=== PATIENT | female | born 1935 | race Caucasian/White ===

== ENCOUNTER 2018-05-03 05:38 | Emergency (ER) | payer MEDICARE, BC ==
[~2018-05-03] VITALS: Ht 154.9 cm; Wt 86.3 kg
[~2018-05-03 05:38] MED LIST: APIX5TAB3 PO; ATOR40TA PO; GABA-532 PO; LANTUS SQ; LINA5TAB4 PO; METO-384 PO
[2018-05-03 06:04] LABS: MEAN CORPUSCULAR VOLUME 76.7 FL (78-98)
[2018-05-03 06:08] LABS: HEMATOCRIT 36.2 % (35.0-45.0); HEMOGLOBIN 11.5 g/dl (12.0-16.0); MEAN CORPUSCULAR HEMOGLOBIN 24.4 PG (27.0-31.0); MEAN CORPUSCULAR HGB CONC 31.9 % (33.0-36.5); MEAN PLATELET VOLUME 10.1 FL (7.4-10.4); PLATELET COUNT 232 X10'3 (140-440); RED BLOOD COUNT 4.72 X10'6 (4.20-5.60); RED CELL DISTRIBUTION WIDTH 17.4 % (11.5-14.5); WHITE BLOOD COUNT 9.5 X10'3 (4.5-11.0)
[2018-05-03] MEDS ORDERED: methylPREDNISolone sod succ 125mg/2ml vial IV ONE (06:15)
[2018-05-03] MEDS ORDERED: ipratropium/albuterol 3ml nebule NEB ONE (06:15)
[2018-05-03] MEDS: magnesium 1gm/100ml D5W IVPB 100 ML IV SCH ×2 (06:32→07:34)
[2018-05-03 06:34] LABS: ALANINE AMINOTRANSFERASE 20 U/L (12-78); ALBUMIN 2.9 G/DL (3.4-5.0); ALBUMIN/GLOBULIN RATIO 0.7 (1.1-1.5); ALKALINE PHOSPHATASE 103 IU/L (46-116); ANION GAP 10 (8-16); ASPARTATE AMINO TRANSFERASE 18 U/L (10-37); BILIRUBIN,TOTAL 0.9 MG/DL (0.1-1.0); BLOOD UREA NITROGEN 27 MG/DL (7-18); CALCIUM 9.4 MG/DL (8.5-10.1); CHLORIDE 103 MMOL/L (99-107); CREATININE 1.59 MG/DL (0.40-0.90); GLUCOSE 182 MG/DL (70-104); POTASSIUM 3.7 MMOL/L (3.5-5.1); SODIUM 139 MMOL/L (135-145); TOTAL CARBON DIOXIDE 25.6 MMOL/L (24-32); TOTAL PROTEIN 6.8 G/DL (6.4-8.2); eGFR 31 ML/MIN
[2018-05-03 07:18] LABS: ANISOCYTOSIS 2+; BASOPHILS % (MANUAL) 4 % (0-1); EOSINOPHILS % (MANUAL) 4 % (0-6); LYMPHOCYTES % (MANUAL) 20 % (21-51); MONOCYTES % (MANUAL) 7 % (2-12); NEUTROPHILS % (MANUAL) 65 % (42-75); PLATELET ESTIMATE NORMAL; TOTAL CELLS COUNTED 100
[2018-05-03 07:40] LABS: PARTIAL THROMBOPLASTIN TIME 29 SECONDS (22-32); PROTHROMBIN TIME 10.4 SECONDS (9.0-12.0)
[2018-05-03] MEDS ORDERED: DOXY100C43 PO (08:19)
[2018-05-03] MEDS ORDERED: PRED20TA PO (08:19)
[2018-05-03] MEDS ORDERED: furosemide 20MG tablet PO ONE (08:20)
[2018-05-03] MEDS ORDERED: levoFLOXACIN 250mg tablet PO ONE (09:05)
[2018-05-03] MEDS ORDERED: IPRA3AMP31 IH (09:12)
[2018-05-03 09:27] VITALS: BP 150/87
== END 2018-05-03 09:29 | disposition home or self-care (01) ==
LOC: ER 05:38
DX: J44.1 Chronic obstructive pulmonary disease with (acute) exacerbation (principal); I50.9 Heart failure, unspecified; I25.10 Atherosclerotic heart disease of native coronary artery without angina pectoris; I11.0 Hypertensive heart disease with heart failure; I25.2 Old myocardial infarction; E11.9 Type 2 diabetes mellitus without complications; G89.29 Other chronic pain; Z85.038 Personal history of other malignant neoplasm of large intestine; Z90.49 Acquired absence of other specified parts of digestive tract; Z95.1 Presence of aortocoronary bypass graft; Z95.0 Presence of cardiac pacemaker; Z79.01 Long term (current) use of anticoagulants; Z79.4 Long term (current) use of insulin; Z79.899 Other long term (current) drug therapy
CPT/HCPCS: 36415; 71045; 80053; 83880; 84145; 84484; 85025; 85610; 85730; 93005; 94640; 94760; 96365; 96375; 99285; J2930

== ENCOUNTER 2018-05-21 09:54 | Inpatient (IN) | payer MEDICARE, BC ==
[~2018-05-21] VITALS: Ht 160 cm; Wt 81.0 kg
[~2018-05-21 09:54] MED LIST changes: +DOXY100C43 PO; +IPRA3AMP31 IH; +PRED20TA PO
[2018-05-21] MEDS ORDERED: methylPREDNISolone sod succ 125mg/2ml vial IV ONE (10:15)
[2018-05-21] MEDS ORDERED: furosemide 10 MG/1 ML 10ml inj IV ONE (10:15)
[2018-05-21] MEDS ORDERED: ipratropium/albuterol 3ml nebule NEB ONE (10:15)
[2018-05-21 10:31] LABS: BASOPHILS # (AUTO) 0.1 X10'3 (0-0.2); BASOPHILS % (AUTO) 0.6 % (0-1); EOSINOPHILS # (AUTO) 0.3 X10'3 (0-0.9); HEMATOCRIT 34.6 % (35.0-45.0); HEMOGLOBIN 10.9 g/dl (12.0-16.0); LYMPHOCYTES # (AUTO) 1.1 X10'3 (1.1-4.8); LYMPHOCYTES % (AUTO) 12.6 % (21-51); MEAN CORPUSCULAR HEMOGLOBIN 24.2 PG (27.0-31.0); MEAN CORPUSCULAR HGB CONC 31.6 % (33.0-36.5); MEAN CORPUSCULAR VOLUME 76.5 FL (78-98); MEAN PLATELET VOLUME 9.7 FL (7.4-10.4); MONOCYTES # (AUTO) 0.6 X10'3 (0-0.9); MONOCYTES % (AUTO) 7.3 % (2-12); NEUTROPHILS # (AUTO) 6.5 X10'3 (1.8-7.7); NEUTROPHILS % (AUTO) 75.5 % (42-75); PLATELET COUNT 217 X10'3 (140-440); RED BLOOD COUNT 4.52 X10'6 (4.20-5.60); RED CELL DISTRIBUTION WIDTH 19.3 % (11.5-14.5); WHITE BLOOD COUNT 8.6 X10'3 (4.5-11.0)
[2018-05-21] MEDS: nitroGLYCERIN 0.4mg SUBLingual tab SL PRN ×2 (10:38→10:46)
[2018-05-21 10:46] LABS: ALANINE AMINOTRANSFERASE 21 U/L (12-78); ALBUMIN 2.6 G/DL (3.4-5.0); ALBUMIN/GLOBULIN RATIO 0.7 (1.1-1.5); ALKALINE PHOSPHATASE 92 IU/L (46-116); ANION GAP 8 (8-16); ASPARTATE AMINO TRANSFERASE 24 U/L (10-37); BLOOD UREA NITROGEN 20 MG/DL (7-18); BUN/CREATININE RATIO 13.6 (6.6-38.0); CALCIUM 9.3 MG/DL (8.5-10.1); CHLORIDE 102 MMOL/L (99-107); CREATININE 1.47 MG/DL (0.40-0.90); GLUCOSE 183 MG/DL (70-104); POTASSIUM 4.2 MMOL/L (3.5-5.1); SODIUM 140 MMOL/L (135-145); TOTAL CARBON DIOXIDE 30.2 MMOL/L (24-32); TOTAL PROTEIN 6.5 G/DL (6.4-8.2); eGFR 34 ML/MIN
[2018-05-21 10:51] LABS: ABG BASE EXCESS 3.6 mmol/L (-2.0-3.0); ABG HCO3 28.2 mmol/L (22.0-26.0); ABG OXYGEN SATURATION 94.1 % (95-98); ABG PCO2 (T) 43.1 mmHg (32.0-45.0); ABG PH (T) 7.434 (7.350-7.450); ABG PO2 (T) 69.1 mmHg (83-108); ALLEN'S TEST Positive; FCOHb 0.6 % (0.5-1.5); FLOW 2 L/min; FO2Hb 93.5 % (94-100); RESPIRATORY RATE (OBSERVED) 16 b/min; TOTAL HEMOGLOBIN 11.4 G/dl (12.0-16.0)
[2018-05-21 10:53] LABS: ANISOCYTOSIS 2+; MICROCYTOSIS 1+; PLATELET ESTIMATE NORMAL
[2018-05-21 10:54] LABS: MAGNESIUM 1.8 MG/DL (1.5-2.4)
[2018-05-21] MEDS ORDERED: AMLO10TA4 PO (11:36)
[2018-05-21] MEDS ORDERED: FURO-150 PO (11:36)
[2018-05-21] MEDS ORDERED: APIX2.5T PO (11:36)
[2018-05-21] MEDS ORDERED: LEVO75TA PO (11:36)
[2018-05-21] MEDS ORDERED: ALLO100T PO (11:36)
[2018-05-21] MEDS ORDERED: HYDR-3965 PO (11:36)
[2018-05-21] MEDS ORDERED: SERT25TA PO (11:38)
[2018-05-21] MEDS ORDERED: acetaminophen 325mg tablet PO PRN ×2 (12:40)
[2018-05-21] MEDS ORDERED: glucagon, human recombinant 1mg kit SUBCUT PRN (12:40)
[2018-05-21] MEDS ORDERED: morphine 2 MG/ML inj. syringe IV PRN ×2 (12:40)
[2018-05-21] MEDS ORDERED: MESSAGE TO PHARMACY PO ONE (12:40)
[2018-05-21] MEDS ORDERED: magnesium Cl slow-release 64mg tablet PO PRN (12:40)
[2018-05-21] MEDS ORDERED: dextrose 50%-water 50ml dispensing syringe IV PRN ×2 (12:40)
[2018-05-21] MEDS ORDERED: diphenhydrAMINE 25mg capsule PO PRN (12:40)
[2018-05-21] MEDS ORDERED: HYDROcodone/acetaminophen 10/325mg tab PO PRN (12:40)
[2018-05-21] MEDS ORDERED: potassium Cl 20 mEq SR tablet PO PRN ×2 (12:40)
[2018-05-21] MEDS ORDERED: mag hydrox/Alum hydrox/simeth 30ml oral suspension PO PRN (12:40)
[2018-05-21] MEDS ORDERED: dextrose ORAL solution 15 GM/59 ML bottle PO PRN ×2 (12:40)
[2018-05-21] MEDS ORDERED: magnesium hydroxide 30ml (MOM) UD suspension PO PRN (12:40)
[2018-05-21] MEDS ORDERED: potassium Cl 40MEQ/NS 500ml 500 ML IV PRN ×2 (12:40)
[2018-05-21] MEDS ORDERED: ondansetron/PF 4mg/2ml inj IV PRN (12:40)
[2018-05-21] MEDS ORDERED: HYDROcodone/acetaminophen 5mg/325mg tablet PO PRN (12:40)
[2018-05-21] MEDS ORDERED: magnesium 4gm in 100ml NS 100 ML IV PRN (12:40)
[2018-05-21] MEDS ORDERED: magnesium 1gm/100ml D5W IVPB 100 ML IV PRN (12:40)
[2018-05-21] MEDS: normal saline 1000ml 1,000 ML IV SCH (13:03)
[2018-05-21] MEDS: levoFLOXACIN-Levaquin 500mg/D5 100 ML IV SCH (13:20)
[2018-05-21] MEDS: K and/or MAG REPLACEMENT MC SCH (13:22)
[2018-05-21] MEDS: pantoprazole 40mg Tablet.DR PO SCH (13:36)
[2018-05-21 14:06] LABS: % IRON SATURATION 12 % (11-46); IRON 33 UG/DL (49-151); TOTAL IRON BINDING CAPACITY 271 UG/DL (259-388)
[2018-05-21 14:07] LABS: HEMOGLOBIN A1C 8.4 % (4.5-6.2)
[2018-05-21 14:21] LABS: FERRITIN 36 NG/ML (8-252)
[2018-05-21] MEDS: ipratropium/albuterol 3ml nebule NEB SCH ×3 (15:26→23:22)
[2018-05-21 16:00] VITALS: BP 155/69
[2018-05-21] MEDS: methylPREDNISolone sod succ 125mg/2ml vial IV SCH (16:31)
[2018-05-21 20:00] VITALS: BP 119/53
[2018-05-21] MEDS: furosemide 10 MG/1 ML 10ml inj IV SCH (20:47)
[2018-05-21] MEDS: allopurinol 100mg tablet PO SCH (20:48)
[2018-05-21] MEDS: apixaban 2.5mg tablet PO SCH (20:48)
[2018-05-21] MEDS: atorvastatin 20mg tablet PO SCH (20:49)
[2018-05-21] MEDS ORDERED: temazepam 15mg capsule PO PRN (21:00)
[2018-05-21] MEDS: insulin Lispro (HumaLOG) vial - multi-dose SQ SCH (21:31)
[2018-05-21] MEDS: insulin glargine (Lantus) pen - multi-dose SQ SCH (21:32)
[2018-05-22] VITALS: BP 101/57
[2018-05-22] MEDS: methylPREDNISolone sod succ 125mg/2ml vial IV SCH ×4 (00:24→23:55)
[2018-05-22] MEDS: ipratropium/albuterol 3ml nebule NEB SCH ×6 (03:11→23:33)
[2018-05-22] MEDS: normal saline 1000ml 1,000 ML IV SCH (05:01)
[2018-05-22 05:19] LABS: BASOPHILS % (AUTO) 0 % (0-1); EOSINOPHILS # (AUTO) 0.1 X10'3 (0-0.9); EOSINOPHILS % (AUTO) 1.3 % (0-6); HEMATOCRIT 29.8 % (35.0-45.0); HEMOGLOBIN 9.4 g/dl (12.0-16.0); LYMPHOCYTES # (AUTO) 0.4 X10'3 (1.1-4.8); LYMPHOCYTES % (AUTO) 8.6 % (21-51); MEAN CORPUSCULAR HGB CONC 31.6 % (33.0-36.5); MEAN PLATELET VOLUME 10.2 FL (7.4-10.4); MONOCYTES % (AUTO) 1.1 % (2-12); NEUTROPHILS # (AUTO) 3.9 X10'3 (1.8-7.7); PLATELET COUNT 182 X10'3 (140-440); RED BLOOD COUNT 3.92 X10'6 (4.20-5.60); WHITE BLOOD COUNT 4.3 X10'3 (4.5-11.0)
[2018-05-22 05:49] LABS: ALANINE AMINOTRANSFERASE 17 U/L (12-78); ALBUMIN 2.3 G/DL (3.4-5.0); ALBUMIN/GLOBULIN RATIO 0.7 (1.1-1.5); ALKALINE PHOSPHATASE 76 IU/L (46-116); ANION GAP 11 (8-16); ASPARTATE AMINO TRANSFERASE 18 U/L (10-37); BILIRUBIN,TOTAL 0.8 MG/DL (0.1-1.0); BLOOD UREA NITROGEN 31 MG/DL (7-18); BUN/CREATININE RATIO 18.6 (6.6-38.0); CALCIUM 8.5 MG/DL (8.5-10.1); CHLORIDE 102 MMOL/L (99-107); CHOL/HDL RATIO 1.8 (0.00-4.99); CHOLESTEROL 138 MG/DL (0-200); CREATININE 1.67 MG/DL (0.40-0.90); GLUCOSE 247 MG/DL (70-104); HDL CHOLESTEROL 76 MG/DL (35-60); LDL CHOLESTEROL 59 MG/DL (50-100); MAGNESIUM 1.6 MG/DL (1.5-2.4); PHOSPHORUS 3.8 MG/DL (2.3-4.5); SODIUM 140 MMOL/L (135-145); TOTAL CARBON DIOXIDE 27.2 MMOL/L (24-32); TOTAL PROTEIN 5.7 G/DL (6.4-8.2); TRIGLYCERIDES 40 MG/DL (20-135); eGFR 29 ML/MIN
[2018-05-22 05:59] LABS: ANISOCYTOSIS 2+; MICROCYTOSIS 1+; PLATELET ESTIMATE NORMAL
[2018-05-22 06:00] LABS: ELLIPTOCYTES 1+
[2018-05-22 07:03] VITALS: BP 123/66
[2018-05-22 07:35] VITALS: BP 123/66
[2018-05-22] MEDS ORDERED: furosemide 20MG tablet PO SCH (08:00)
[2018-05-22] MEDS ORDERED: levoTHYROXINE 75mcg tablet PO SCH (08:00)
[2018-05-22] MEDS: K and/or MAG REPLACEMENT MC SCH (08:00)
[2018-05-22] MEDS: sertraline 50mg tablet PO SCH (08:00)
[2018-05-22] MEDS: pantoprazole 40mg Tablet.DR PO SCH (08:26)
[2018-05-22] MEDS: apixaban 2.5mg tablet PO SCH ×2 (08:26→20:33)
[2018-05-22] MEDS: allopurinol 100mg tablet PO SCH ×2 (08:27→20:33)
[2018-05-22] MEDS: metoprolol succinate 25mg (24-HOUR) SR. Tablet PO SCH (08:28)
[2018-05-22] MEDS: amLODIPine 5mg tablet PO SCH (08:28)
[2018-05-22] MEDS: insulin Lispro (HumaLOG) vial - multi-dose SQ SCH ×3 (09:38→18:47)
[2018-05-22] MEDS: furosemide 10 MG/1 ML 10ml inj IV SCH ×2 (09:39→20:38)
[2018-05-22 11:01] LABS: CLARITY,URINE CLEAR (Clear); COLOR,URINE YELLOW (Yellow); GLUCOSE, URINE 250 mg/dl (Neg); KETONES,URINE NEGATIVE (Neg); LEUKOCYTE ESTERASE ,URINE NEGATIVE (Neg); NITRITES, URINE NEGATIVE (Neg); OCCULT BLOOD,URINE SMALL (Neg); PROTEIN,URINE 100 mg/dl (Neg); UA COLLECTION TYPE CLN CATCH MIDSTREAM; UROBILINOGEN,URINE 0.2 E.U/dL (0.2-1.0)
[2018-05-22 11:10] LABS: MUCUS STRANDS FEW /LPF (Neg); SQUAMOUS EPITHELIAL CELL,UR MODERATE /LPF (FEW)
[2018-05-22 11:12] LABS: BACTERIA,URINE FEW /HPF (Neg); RBC,URINE 0-2 /HPF (0-2); WBC,URINE 0-4 /HPF (0-4)
[2018-05-22 18:00] VITALS: BP 114/81
[2018-05-22] MEDS: atorvastatin 20mg tablet PO SCH (20:33)
[2018-05-22] MEDS: insulin glargine (Lantus) pen - multi-dose SQ SCH (21:35)
[2018-05-23] VITALS: BP 119/54
[2018-05-23] MEDS: normal saline 1000ml 1,000 ML IV SCH ×2 (01:04→20:48)
[2018-05-23] MEDS: ipratropium/albuterol 3ml nebule NEB SCH ×6 (03:18→23:20)
[2018-05-23 06:03] LABS: ALANINE AMINOTRANSFERASE 17 U/L (12-78); ALBUMIN 2.5 G/DL (3.4-5.0); ALBUMIN/GLOBULIN RATIO 0.8 (1.1-1.5); ALKALINE PHOSPHATASE 66 IU/L (46-116); ANION GAP 11 (8-16); ASPARTATE AMINO TRANSFERASE 21 U/L (10-37); BILIRUBIN,TOTAL 0.6 MG/DL (0.1-1.0); BLOOD UREA NITROGEN 41 MG/DL (7-18); CALCIUM 8.5 MG/DL (8.5-10.1); CHLORIDE 104 MMOL/L (99-107); CREATININE 1.71 MG/DL (0.40-0.90); GLUCOSE 221 MG/DL (70-104); MAGNESIUM 1.7 MG/DL (1.5-2.4); PHOSPHORUS 4.4 MG/DL (2.3-4.5); POTASSIUM 3.6 MMOL/L (3.5-5.1); SODIUM 142 MMOL/L (135-145); TOTAL CARBON DIOXIDE 26.9 MMOL/L (24-32); TOTAL PROTEIN 5.8 G/DL (6.4-8.2); eGFR 29 ML/MIN
[2018-05-23 07:00] VITALS: BP 110/40
[2018-05-23 07:08] LABS: HEMATOCRIT 28.3 % (35.0-45.0); HEMOGLOBIN 9.5 g/dl (12.0-16.0); MEAN CORPUSCULAR HEMOGLOBIN 25.4 PG (27.0-31.0); MEAN CORPUSCULAR HGB CONC 33.5 % (33.0-36.5); MEAN CORPUSCULAR VOLUME 75.9 FL (78-98); MEAN PLATELET VOLUME 10.5 FL (7.4-10.4); PLATELET COUNT 196 X10'3 (140-440); RED BLOOD COUNT 3.73 X10'6 (4.20-5.60); RED CELL DISTRIBUTION WIDTH 18.1 % (11.5-14.5); WHITE BLOOD COUNT 7.9 X10'3 (4.5-11.0)
[2018-05-23 07:09] LABS: BASOPHILS % (AUTO) 0.1 % (0-1); EOSINOPHILS % (AUTO) 0.1 % (0-6); LYMPHOCYTES # (AUTO) 0.4 X10'3 (1.1-4.8); LYMPHOCYTES % (AUTO) 4.7 % (21-51); MONOCYTES # (AUTO) 0.1 X10'3 (0-0.9); MONOCYTES % (AUTO) 0.8 % (2-12); NEUTROPHILS # (AUTO) 7.4 X10'3 (1.8-7.7); NEUTROPHILS % (AUTO) 94.3 % (42-75)
[2018-05-23] MEDS: sertraline 50mg tablet PO SCH (08:00)
[2018-05-23] MEDS: K and/or MAG REPLACEMENT MC SCH (08:00)
[2018-05-23] MEDS: levoTHYROXINE 88mcg tablet PO SCH (08:41)
[2018-05-23] MEDS: amLODIPine 5mg tablet PO SCH (08:41)
[2018-05-23] MEDS: pantoprazole 40mg Tablet.DR PO SCH (08:42)
[2018-05-23] MEDS: apixaban 2.5mg tablet PO SCH ×2 (08:42→20:51)
[2018-05-23] MEDS: allopurinol 100mg tablet PO SCH ×2 (08:44→20:51)
[2018-05-23] MEDS: methylPREDNISolone sod succ 125mg/2ml vial IV SCH ×2 (08:45→16:43)
[2018-05-23] MEDS: furosemide 10 MG/1 ML 10ml inj IV SCH (08:45)
[2018-05-23] MEDS: levoFLOXACIN-Levaquin 500mg/D5 100 ML IV SCH (08:46)
[2018-05-23] MEDS: metoprolol succinate 25mg (24-HOUR) SR. Tablet PO SCH (08:50)
[2018-05-23] MEDS: insulin Lispro (HumaLOG) vial - multi-dose SQ SCH ×4 (09:00→21:02)
[2018-05-23 11:00] VITALS: BP 119/52
[2018-05-23] MEDS ORDERED: bisacodyl 10mg suppository rectal RC STA ×2 (14:55→14:58)
[2018-05-23] MEDS ORDERED: bisacodyl 10mg suppository rectal RC PRN (14:55)
[2018-05-23 20:00] VITALS: BP 137/89
[2018-05-23] MEDS: atorvastatin 20mg tablet PO SCH (20:50)
[2018-05-23] MEDS: insulin glargine (Lantus) pen - multi-dose SQ SCH (21:02)
[2018-05-24] VITALS: BP 123/56
[2018-05-24] MEDS: methylPREDNISolone sod succ 125mg/2ml vial IV SCH ×2 (00:27→09:08)
[2018-05-24] MEDS: ipratropium/albuterol 3ml nebule NEB SCH ×3 (02:49→11:00)
[2018-05-24 05:47] LABS: BASOPHILS % (AUTO) 0 % (0-1); EOSINOPHILS % (AUTO) 0.1 % (0-6); HEMATOCRIT 28.4 % (35.0-45.0); HEMOGLOBIN 9.3 g/dl (12.0-16.0); LYMPHOCYTES # (AUTO) 0.3 X10'3 (1.1-4.8); LYMPHOCYTES % (AUTO) 3.3 % (21-51); MEAN CORPUSCULAR HEMOGLOBIN 24.8 PG (27.0-31.0); MEAN CORPUSCULAR HGB CONC 32.7 % (33.0-36.5); MEAN CORPUSCULAR VOLUME 75.9 FL (78-98); MONOCYTES # (AUTO) 0.1 X10'3 (0-0.9); MONOCYTES % (AUTO) 1.8 % (2-12); NEUTROPHILS # (AUTO) 7.8 X10'3 (1.8-7.7); NEUTROPHILS % (AUTO) 94.8 % (42-75); PLATELET COUNT 210 X10'3 (140-440); RED BLOOD COUNT 3.74 X10'6 (4.20-5.60); RED CELL DISTRIBUTION WIDTH 18.5 % (11.5-14.5); WHITE BLOOD COUNT 8.2 X10'3 (4.5-11.0)
[2018-05-24 06:10] LABS: ALANINE AMINOTRANSFERASE 26 U/L (12-78); ALBUMIN 2.6 G/DL (3.4-5.0); ALBUMIN/GLOBULIN RATIO 0.8 (1.1-1.5); ALKALINE PHOSPHATASE 67 IU/L (46-116); ANION GAP 13 (8-16); ASPARTATE AMINO TRANSFERASE 24 U/L (10-37); BILIRUBIN,TOTAL 0.6 MG/DL (0.1-1.0); BLOOD UREA NITROGEN 44 MG/DL (7-18); BUN/CREATININE RATIO 27.5 (6.6-38.0); CALCIUM 8.3 MG/DL (8.5-10.1); CHLORIDE 104 MMOL/L (99-107); GLUCOSE 264 MG/DL (70-104); MAGNESIUM 1.8 MG/DL (1.5-2.4); PHOSPHORUS 4.3 MG/DL (2.3-4.5); POTASSIUM 3.4 MMOL/L (3.5-5.1); SODIUM 142 MMOL/L (135-145); TOTAL CARBON DIOXIDE 24.9 MMOL/L (24-32); TOTAL PROTEIN 5.8 G/DL (6.4-8.2); eGFR 31 ML/MIN
[2018-05-24 06:58] VITALS: BP 122/63
[2018-05-24] MEDS ORDERED: lactobacillus rhamnosus 10,000 MMU CELLS/CAPSULE PO SCH (08:00)
[2018-05-24] MEDS: K and/or MAG REPLACEMENT MC SCH (08:00)
[2018-05-24] MEDS: apixaban 2.5mg tablet PO SCH (09:08)
[2018-05-24] MEDS: pantoprazole 40mg Tablet.DR PO SCH (09:08)
[2018-05-24] MEDS: sertraline 50mg tablet PO SCH (09:09)
[2018-05-24] MEDS: amLODIPine 5mg tablet PO SCH (09:09)
[2018-05-24] MEDS: metoprolol succinate 25mg (24-HOUR) SR. Tablet PO SCH (09:09)
[2018-05-24] MEDS: levoTHYROXINE 88mcg tablet PO SCH (09:09)
[2018-05-24] MEDS: allopurinol 100mg tablet PO SCH (09:10)
[2018-05-24] MEDS: insulin Lispro (HumaLOG) vial - multi-dose SQ SCH ×2 (09:18→13:16)
[2018-05-24] MEDS ORDERED: digoxin 125mcg (0.125mg) tablet PO SCH (10:30)
[2018-05-24 11:33] VITALS: BP 124/47
[2018-05-24] MEDS ORDERED: potassium Cl 20 mEq SR tablet PO STA (13:02)
== END 2018-05-24 15:03 | DRG 291 ==
LOC: ER 09:54 → ED HOLD 12:40 → SUR 3N 15:22
PROVIDERS: ADMIT Family Medicine; ATTEND Family Medicine
DX: I13.0 Hypertensive heart and chronic kidney disease with heart failure and stage 1 through stage 4 chronic kidney disease, or unspecified chronic kidney disease (principal); I50.33 Acute on chronic diastolic (congestive) heart failure; J96.90 Respiratory failure, unspecified, unspecified whether with hypoxia or hypercapnia; J44.1 Chronic obstructive pulmonary disease with (acute) exacerbation; D64.9 Anemia, unspecified; E03.9 Hypothyroidism, unspecified; E11.22 Type 2 diabetes mellitus with diabetic chronic kidney disease; E78.5 Hyperlipidemia, unspecified; G89.29 Other chronic pain; F32.9 Major depressive disorder, single episode, unspecified; I25.10 Atherosclerotic heart disease of native coronary artery without angina pectoris; I27.81 Cor pulmonale (chronic); I48.91 Unspecified atrial fibrillation; M10.9 Gout, unspecified; N18.3 Chronic kidney disease, stage 3 (moderate); Z66 Do not resuscitate; I25.2 Old myocardial infarction; Z95.0 Presence of cardiac pacemaker; Z95.1 Presence of aortocoronary bypass graft; Z98.42 Cataract extraction status, left eye; Z98.41 Cataract extraction status, right eye; Z23 Encounter for immunization; Z99.81 Dependence on supplemental oxygen; Z90.49 Acquired absence of other specified parts of digestive tract; Z79.01 Long term (current) use of anticoagulants; Z79.4 Long term (current) use of insulin; Z79.899 Other long term (current) drug therapy; Z85.038 Personal history of other malignant neoplasm of large intestine; Z79.890 Hormone replacement therapy; Z87.891 Personal history of nicotine dependence; Z82.3 Family history of stroke
CPT/HCPCS: 36415; 36600; 71045; 80053; 80061; 81001; 82728; 82803; 82948; 83036; 83540; 83550; 83735; 83880; 84100; 84443; 84484; 85018; 85025; 87040; 87070; 93005; 94640; 94667; 94760; 96374; 96375; 97110; 97116; 97162; 97530; 99285; J1815; J1940; J1956; J2930; J7030

== ENCOUNTER 2018-07-28 18:29 | Inpatient (IN) | payer MEDICARE, BC ==
[2018-07-28] VITALS (9 sets, daily range): BP systolic 80–102; BP diastolic 39–59
[~2018-07-28] VITALS: Ht 157.5 cm; Wt 86.0 kg
[~2018-07-28 18:29] MED LIST changes: +ALLO100T PO; +AMLO10TA4 PO; +APIX2.5T PO; -APIX5TAB3 PO; -DOXY100C43 PO; +FURO-150 PO; -GABA-532 PO; +HYDR-3965 PO; +LEVO75TA PO; -PRED20TA PO; +SERT25TA PO
[2018-07-28 19:10] LABS: BASOPHILS # (AUTO) 0.1 X10'3 (0-0.2); BASOPHILS % (AUTO) 0.7 % (0-1); EOSINOPHILS # (AUTO) 0.2 X10'3 (0-0.9); EOSINOPHILS % (AUTO) 2.1 % (0-6); HEMATOCRIT 23.5 % (35.0-45.0); HEMOGLOBIN 7.3 g/dl (12.0-16.0); LYMPHOCYTES # (AUTO) 1.9 X10'3 (1.1-4.8); LYMPHOCYTES % (AUTO) 23.5 % (21-51); MEAN CORPUSCULAR HGB CONC 31.1 % (33.0-36.5); MEAN CORPUSCULAR VOLUME 83.6 FL (78-98); MEAN PLATELET VOLUME 10.3 FL (7.4-10.4); MONOCYTES # (AUTO) 0.7 X10'3 (0-0.9); MONOCYTES % (AUTO) 8.1 % (2-12); NEUTROPHILS # (AUTO) 5.4 X10'3 (1.8-7.7); NEUTROPHILS % (AUTO) 65.6 % (42-75); PLATELET COUNT 188 X10'3 (140-440); RED BLOOD COUNT 2.82 X10'6 (4.20-5.60); RED CELL DISTRIBUTION WIDTH 20.8 % (11.5-14.5); WHITE BLOOD COUNT 8.3 X10'3 (4.5-11.0)
[2018-07-28 19:33] LABS: ALANINE AMINOTRANSFERASE 20 U/L (12-78); ALBUMIN 2.9 G/DL (3.4-5.0); ALKALINE PHOSPHATASE 62 IU/L (46-116); ANION GAP 10 (8-16); ASPARTATE AMINO TRANSFERASE 17 U/L (10-37); BILIRUBIN,TOTAL 0.4 MG/DL (0.1-1.0); BLOOD UREA NITROGEN 77 MG/DL (7-18); BUN/CREATININE RATIO 43.5 (6.6-38.0); CALCIUM 8.7 MG/DL (8.5-10.1); CHLORIDE 101 MMOL/L (99-107); CREATININE 1.77 MG/DL (0.40-0.90); GLUCOSE 176 MG/DL (70-104); POTASSIUM 4.1 MMOL/L (3.5-5.1); SODIUM 138 MMOL/L (135-145); TOTAL CARBON DIOXIDE 27.2 MMOL/L (24-32); TOTAL PROTEIN 5.9 G/DL (6.4-8.2); eGFR 27 ML/MIN
[2018-07-28 19:36] LABS: INR 1.3 INR; PARTIAL THROMBOPLASTIN TIME 33 SECONDS (22-32); PROTHROMBIN TIME 13.4 SECONDS (9.0-12.0)
[2018-07-28 19:54] LABS: OCCULT BLOOD STOOL POSITIVE (Neg)
[2018-07-28] MEDS ORDERED: methylPREDNISolone sod succ 125mg/2ml vial IV ONE (20:20)
[2018-07-28] MEDS ORDERED: albuterol 2.5 MG/3 ML nebule NEB ONE (20:20)
[2018-07-28] MEDS ORDERED: normal saline 1000ml 1,000 ML IV ONE (20:20)
[2018-07-28 20:22] LABS: ANISOCYTOSIS 3+; PLATELET ESTIMATE NORMAL; POLYCHROMASIA 1+
[2018-07-28 20:23] LABS: HYPOCHROMASIA 2+
[2018-07-28] MEDS ORDERED: FURO40TA4 PO (20:36)
[2018-07-28] MEDS ORDERED: INSU100I31 (20:36)
[2018-07-28] MEDS ORDERED: LEVO88TA7 PO (20:36)
[2018-07-28] MEDS ORDERED: LINA5TAB4 PO (20:36)
[2018-07-28] MEDS ORDERED: LOPE2CAP PO (20:36)
[2018-07-28] MEDS ORDERED: INSU100V13 SQ (20:36)
[2018-07-28] MEDS ORDERED: POTA8TAB3 (20:36)
[2018-07-28] MEDS ORDERED: RIVA15TA PO (20:36)
[2018-07-28] MEDS ORDERED: LOSA100T15 PO (20:36)
[2018-07-28] MEDS ORDERED: METO-395 PO (20:36)
[2018-07-28] MEDS ORDERED: MESSAGE TO PHARMACY PO ONE (23:05)
[2018-07-28] MEDS ORDERED: diphenhydrAMINE 25mg capsule PO PRN (23:05)
[2018-07-28] MEDS ORDERED: diphenhydrAMINE 50 mg/ml inj IV PRN (23:05)
[2018-07-28] MEDS ORDERED: morphine 2 MG/ML inj. syringe IV PRN (23:05)
[2018-07-28] MEDS ORDERED: dextrose 50%-water 50ml dispensing syringe IV PRN ×2 (23:05)
[2018-07-28] MEDS ORDERED: glucagon, human recombinant 1mg kit SUBCUT PRN (23:05)
[2018-07-28] MEDS ORDERED: bisacodyl 10mg suppository rectal RC PRN (23:05)
[2018-07-28] MEDS ORDERED: mag hydrox/Alum hydrox/simeth 30ml oral suspension PO PRN (23:05)
[2018-07-28] MEDS ORDERED: ondansetron/PF 4mg/2ml inj IV PRN (23:05)
[2018-07-28] MEDS ORDERED: magnesium hydroxide 30ml (MOM) UD suspension PO PRN (23:05)
[2018-07-28] MEDS ORDERED: acetaminophen 650mg rectal suppository RC PRN (23:05)
[2018-07-28] MEDS ORDERED: acetaminophen 325mg tablet PO PRN ×2 (23:05)
[2018-07-28] MEDS ORDERED: HYDROcodone/acetaminophen 5mg/325mg tablet PO PRN (23:05)
[2018-07-28] MEDS ORDERED: ipratropium/albuterol 3ml nebule IH PRN (23:05)
[2018-07-28] MEDS ORDERED: HYDROmorphone 1 mg/ml syringe IV PRN (23:05)
[2018-07-28] MEDS ORDERED: metoclopramide 5 mg/ml inj IV PRN (23:05)
[2018-07-28] MEDS ORDERED: dextrose ORAL solution 15 GM/59 ML bottle PO PRN ×2 (23:05)
[2018-07-28] MEDS: normal saline 1000ml 1,000 ML IV SCH (23:27)
[2018-07-28 23:57] LABS: HEMOGLOBIN A1C 7.2 % (4.5-6.2)
[2018-07-29 00:16] LABS: INR 1.4 INR; PROTHROMBIN TIME 13.7 SECONDS (9.0-12.0)
[2018-07-29 00:17] LABS: PARTIAL THROMBOPLASTIN TIME 35 SECONDS (22-32)
[2018-07-29 00:33] LABS: MAGNESIUM 1.9 MG/DL (1.5-2.4); PHOSPHORUS 4.2 MG/DL (2.3-4.5)
[2018-07-29 03:30] VITALS: BP 99/77
[2018-07-29 06:15] LABS: BASOPHILS % (AUTO) 0 % (0-1); EOSINOPHILS % (AUTO) 0.6 % (0-6); HEMATOCRIT 28.7 % (35.0-45.0); HEMOGLOBIN 9.2 g/dl (12.0-16.0); LYMPHOCYTES # (AUTO) 0.6 X10'3 (1.1-4.8); LYMPHOCYTES % (AUTO) 8.7 % (21-51); MEAN CORPUSCULAR HEMOGLOBIN 26.8 PG (27.0-31.0); MEAN CORPUSCULAR HGB CONC 31.9 % (33.0-36.5); MEAN CORPUSCULAR VOLUME 84.1 FL (78-98); MONOCYTES # (AUTO) 0.1 X10'3 (0-0.9); MONOCYTES % (AUTO) 0.7 % (2-12); NEUTROPHILS # (AUTO) 6.4 X10'3 (1.8-7.7); PLATELET COUNT 170 X10'3 (140-440); RED BLOOD COUNT 3.42 X10'6 (4.20-5.60); RED CELL DISTRIBUTION WIDTH 19.3 % (11.5-14.5); WHITE BLOOD COUNT 7.2 X10'3 (4.5-11.0)
[2018-07-29 06:41] LABS: ALANINE AMINOTRANSFERASE 16 U/L (12-78); ALBUMIN 2.7 G/DL (3.4-5.0); ALBUMIN/GLOBULIN RATIO 0.9 (1.1-1.5); ALKALINE PHOSPHATASE 64 IU/L (46-116); ANION GAP 10 (8-16); ASPARTATE AMINO TRANSFERASE 17 U/L (10-37); BILIRUBIN,TOTAL 1.4 MG/DL (0.1-1.0); BLOOD UREA NITROGEN 73 MG/DL (7-18); BUN/CREATININE RATIO 43.5 (6.6-38.0); CALCIUM 8.5 MG/DL (8.5-10.1); CHLORIDE 101 MMOL/L (99-107); CREATININE 1.68 MG/DL (0.40-0.90); GLUCOSE 299 MG/DL (70-104); POTASSIUM 4.2 MMOL/L (3.5-5.1); SODIUM 136 MMOL/L (135-145); TOTAL CARBON DIOXIDE 25.1 MMOL/L (24-32); TOTAL PROTEIN 5.6 G/DL (6.4-8.2); eGFR 29 ML/MIN
[2018-07-29] MEDS ORDERED: pantoprazole 40mg Tablet.DR PO SCH (07:30)
[2018-07-29 07:31] VITALS: BP 133/59
[2018-07-29] MEDS: docusate sod 100mg capsule PO SCH ×2 (09:09→19:47)
[2018-07-29] MEDS: azithromycin 250mg tablet PO SCH (09:09)
[2018-07-29] MEDS: methylPREDNISolone sod succ 125mg/2ml vial IV SCH ×2 (09:10→19:43)
[2018-07-29] MEDS: insulin Lispro (HumaLOG) vial - multi-dose SQ SCH ×4 (09:20→21:30)
[2018-07-29] MEDS: CefTRIAXone/D5W-Rocephin 1gm 50 ML IV SCH ×2 (09:39→19:38)
[2018-07-29 11:30] VITALS: BP 142/46
[2018-07-29] MEDS ORDERED: loperamide 2mg capsule PO PRN (14:15)
[2018-07-29] MEDS: pantoprazole 40 MG vial IV SCH (19:40)
[2018-07-29 20:00] VITALS: BP 119/43
[2018-07-29 20:25] LABS: HEMATOCRIT 28.2 % (35.0-45.0); MEAN CORPUSCULAR HEMOGLOBIN 27.2 PG (27.0-31.0); MEAN CORPUSCULAR HGB CONC 32.1 % (33.0-36.5); MEAN CORPUSCULAR VOLUME 84.7 FL (78-98); MEAN PLATELET VOLUME 10.4 FL (7.4-10.4); PLATELET COUNT 191 X10'3 (140-440); RED BLOOD COUNT 3.32 X10'6 (4.20-5.60); RED CELL DISTRIBUTION WIDTH 19.1 % (11.5-14.5); WHITE BLOOD COUNT 9.8 X10'3 (4.5-11.0)
[2018-07-29] MEDS: atorvastatin 20mg tablet PO SCH (21:23)
[2018-07-30] VITALS (12 sets, daily range): BP systolic 95–127; BP diastolic 32–67
[2018-07-30] MEDS: normal saline 1000ml 1,000 ML IV SCH (02:28)
[2018-07-30 06:07] LABS: BASOPHILS % (AUTO) 0 % (0-1); EOSINOPHILS # (AUTO) 0.2 X10'3 (0-0.9); EOSINOPHILS % (AUTO) 1.8 % (0-6); HEMATOCRIT 26.2 % (35.0-45.0); HEMOGLOBIN 8.4 g/dl (12.0-16.0); LYMPHOCYTES # (AUTO) 0.9 X10'3 (1.1-4.8); LYMPHOCYTES % (AUTO) 9.1 % (21-51); MEAN CORPUSCULAR HEMOGLOBIN 27.2 PG (27.0-31.0); MEAN CORPUSCULAR HGB CONC 32.1 % (33.0-36.5); MEAN CORPUSCULAR VOLUME 84.8 FL (78-98); MEAN PLATELET VOLUME 10.7 FL (7.4-10.4); MONOCYTES # (AUTO) 0.3 X10'3 (0-0.9); MONOCYTES % (AUTO) 2.8 % (2-12); NEUTROPHILS # (AUTO) 8.6 X10'3 (1.8-7.7); NEUTROPHILS % (AUTO) 86.3 % (42-75); PLATELET COUNT 180 X10'3 (140-440); RED BLOOD COUNT 3.09 X10'6 (4.20-5.60); WHITE BLOOD COUNT 9.9 X10'3 (4.5-11.0)
[2018-07-30 06:22] LABS: ALANINE AMINOTRANSFERASE 17 U/L (12-78); ALBUMIN 2.8 G/DL (3.4-5.0); ALKALINE PHOSPHATASE 52 IU/L (46-116); ANION GAP 9 (8-16); ASPARTATE AMINO TRANSFERASE 15 U/L (10-37); BILIRUBIN,TOTAL 0.5 MG/DL (0.1-1.0); BLOOD UREA NITROGEN 80 MG/DL (7-18); CALCIUM 8.7 MG/DL (8.5-10.1); CHLORIDE 103 MMOL/L (99-107); CREATININE 1.74 MG/DL (0.40-0.90); GLUCOSE 258 MG/DL (70-104); POTASSIUM 4.5 MMOL/L (3.5-5.1); SODIUM 137 MMOL/L (135-145); TOTAL CARBON DIOXIDE 25.1 MMOL/L (24-32); TOTAL PROTEIN 5.5 G/DL (6.4-8.2); eGFR 28 ML/MIN
[2018-07-30] MEDS ORDERED: linagliptin 5mg tablet PO SCH (08:00)
[2018-07-30] MEDS: metoprolol succinate 25mg (24-HOUR) SR. Tablet PO SCH (09:06)
[2018-07-30] MEDS: azithromycin 250mg tablet PO SCH (09:07)
[2018-07-30] MEDS: docusate sod 100mg capsule PO SCH ×2 (09:07→19:33)
[2018-07-30] MEDS: levoTHYROXINE 88mcg tablet PO SCH (09:07)
[2018-07-30] MEDS: losartan 50mg tablet PO SCH (09:07)
[2018-07-30] MEDS: insulin Lispro (HumaLOG) vial - multi-dose SQ SCH ×3 (09:17→19:31)
[2018-07-30] MEDS: pantoprazole 40 MG vial IV SCH ×2 (09:17→19:31)
[2018-07-30] MEDS: methylPREDNISolone sod succ 125mg/2ml vial IV SCH ×2 (09:17→19:33)
[2018-07-30] MEDS: CefTRIAXone/D5W-Rocephin 1gm 50 ML IV SCH (09:18)
[2018-07-30] MEDS: furosemide 20 MG/2 ML vial IV SCH ×2 (09:45→19:28)
[2018-07-30 20:37] LABS: RED BLOOD COUNT 3.46 X10'6 (4.20-5.60); WHITE BLOOD COUNT 12.3 X10'3 (4.5-11.0)
[2018-07-30 20:38] LABS: HEMATOCRIT 29.5 % (35.0-45.0); HEMOGLOBIN 10.3 g/dl (12.0-16.0); MEAN CORPUSCULAR HEMOGLOBIN 29.7 PG (27.0-31.0); MEAN CORPUSCULAR HGB CONC 34.9 % (33.0-36.5); MEAN CORPUSCULAR VOLUME 85.2 FL (78-98); MEAN PLATELET VOLUME 10.5 FL (7.4-10.4); PLATELET COUNT 176 X10'3 (140-440); RED CELL DISTRIBUTION WIDTH 17.6 % (11.5-14.5)
[2018-07-30] MEDS: atorvastatin 20mg tablet PO SCH (21:24)
[2018-07-30] MEDS: insulin glargine (Lantus) pen - multi-dose SQ SCH (21:28)
[2018-07-31] VITALS (13 sets, daily range): BP systolic 95–158; BP diastolic 46–82
[2018-07-31 06:27] LABS: ALANINE AMINOTRANSFERASE 14 U/L (12-78); ALBUMIN 2.7 G/DL (3.4-5.0); ALBUMIN/GLOBULIN RATIO 1.1 (1.1-1.5); ALKALINE PHOSPHATASE 50 IU/L (46-116); ANION GAP 10 (8-16); ASPARTATE AMINO TRANSFERASE 16 U/L (10-37); BILIRUBIN,TOTAL 0.7 MG/DL (0.1-1.0); BLOOD UREA NITROGEN 72 MG/DL (7-18); BUN/CREATININE RATIO 43.9 (6.6-38.0); CALCIUM 8.7 MG/DL (8.5-10.1); CHLORIDE 105 MMOL/L (99-107); CREATININE 1.64 MG/DL (0.40-0.90); GLUCOSE 184 MG/DL (70-104); SODIUM 141 MMOL/L (135-145); TOTAL CARBON DIOXIDE 25.6 MMOL/L (24-32); TOTAL PROTEIN 5.2 G/DL (6.4-8.2); eGFR 30 ML/MIN
[2018-07-31 06:36] LABS: HEMATOCRIT 28.5 % (35.0-45.0); HEMOGLOBIN 9.6 g/dl (12.0-16.0); MEAN CORPUSCULAR VOLUME 85.6 FL (78-98); RED BLOOD COUNT 3.33 X10'6 (4.20-5.60); WHITE BLOOD COUNT 8.6 X10'3 (4.5-11.0)
[2018-07-31 06:37] LABS: BASOPHILS % (AUTO) 0 % (0-1); EOSINOPHILS % (AUTO) 0 % (0-6); LYMPHOCYTES # (AUTO) 0.8 X10'3 (1.1-4.8); LYMPHOCYTES % (AUTO) 9.4 % (21-51); MEAN CORPUSCULAR HGB CONC 33.8 % (33.0-36.5); MEAN PLATELET VOLUME 10.5 FL (7.4-10.4); MONOCYTES # (AUTO) 0.2 X10'3 (0-0.9); MONOCYTES % (AUTO) 2.9 % (2-12); NEUTROPHILS # (AUTO) 7.6 X10'3 (1.8-7.7); NEUTROPHILS % (AUTO) 87.7 % (42-75); PLATELET COUNT 155 X10'3 (140-440); RED CELL DISTRIBUTION WIDTH 17.6 % (11.5-14.5)
[2018-07-31] MEDS: levoTHYROXINE 88mcg tablet PO SCH (07:40)
[2018-07-31] MEDS: losartan 50mg tablet PO SCH (07:40)
[2018-07-31] MEDS: metoprolol succinate 25mg (24-HOUR) SR. Tablet PO SCH (07:40)
[2018-07-31] MEDS: methylPREDNISolone sod succ 125mg/2ml vial IV SCH (07:40)
[2018-07-31] MEDS: docusate sod 100mg capsule PO SCH ×2 (07:40→19:18)
[2018-07-31] MEDS: pantoprazole 40 MG vial IV SCH ×2 (07:41→19:18)
[2018-07-31] MEDS: furosemide 20 MG/2 ML vial IV SCH (07:44)
[2018-07-31] MEDS: insulin Lispro (HumaLOG) vial - multi-dose SQ SCH ×2 (12:06→19:26)
[2018-07-31] MEDS ORDERED: fentaNYL/PF 50MCG/1 ML 2ML syringe ONE (16:49)
[2018-07-31] MEDS ORDERED: LIDOcaine Viscous 15ml cup ONE (16:50)
[2018-07-31] MEDS ORDERED: MIDAZolam 5mg/5ml vial ONE (16:50)
[2018-07-31] MEDS ORDERED: PEG 3350/Na sulf,bicarb,Cl/KCl oral sol 4 liter bottle PO ONE ×2 (18:00→19:00)
[2018-07-31] MEDS: bisacodyl 5mg tablet.DR PO SCH (19:18)
[2018-07-31 20:29] LABS: HEMATOCRIT 30.6 % (35.0-45.0); HEMOGLOBIN 9.8 g/dl (12.0-16.0); MEAN CORPUSCULAR HEMOGLOBIN 27.5 PG (27.0-31.0); MEAN CORPUSCULAR HGB CONC 32.2 % (33.0-36.5); MEAN CORPUSCULAR VOLUME 85.5 FL (78-98); MEAN PLATELET VOLUME 10.2 FL (7.4-10.4); PLATELET COUNT 197 X10'3 (140-440); RED BLOOD COUNT 3.57 X10'6 (4.20-5.60); RED CELL DISTRIBUTION WIDTH 19.4 % (11.5-14.5); WHITE BLOOD COUNT 9.2 X10'3 (4.5-11.0)
[2018-07-31] MEDS: atorvastatin 20mg tablet PO SCH (21:34)
[2018-07-31] MEDS: insulin glargine (Lantus) pen - multi-dose SQ SCH (21:38)
[2018-08-01] VITALS (13 sets, daily range): BP systolic 61–181; BP diastolic 25–71
[2018-08-01] MEDS: normal saline 1000ml 1,000 ML IV SCH (03:15)
[2018-08-01 05:32] LABS: BASOPHILS % (AUTO) 0.1 % (0-1); EOSINOPHILS % (AUTO) 0 % (0-6); HEMATOCRIT 35.1 % (35.0-45.0); HEMOGLOBIN 11.4 g/dl (12.0-16.0); LYMPHOCYTES # (AUTO) 2.5 X10'3 (1.1-4.8); LYMPHOCYTES % (AUTO) 15.8 % (21-51); MEAN CORPUSCULAR HEMOGLOBIN 27.8 PG (27.0-31.0); MEAN CORPUSCULAR HGB CONC 32.6 % (33.0-36.5); MEAN CORPUSCULAR VOLUME 85.3 FL (78-98); MEAN PLATELET VOLUME 10.1 FL (7.4-10.4); MONOCYTES # (AUTO) 1.3 X10'3 (0-0.9); MONOCYTES % (AUTO) 8.5 % (2-12); NEUTROPHILS # (AUTO) 11.8 X10'3 (1.8-7.7); NEUTROPHILS % (AUTO) 75.6 % (42-75); PLATELET COUNT 251 X10'3 (140-440); RED BLOOD COUNT 4.12 X10'6 (4.20-5.60); RED CELL DISTRIBUTION WIDTH 18.6 % (11.5-14.5); WHITE BLOOD COUNT 15.6 X10'3 (4.5-11.0)
[2018-08-01 05:37] LABS: ALANINE AMINOTRANSFERASE 28 U/L (12-78); ALBUMIN 3.5 G/DL (3.4-5.0); ALBUMIN/GLOBULIN RATIO 1.2 (1.1-1.5); ALKALINE PHOSPHATASE 55 IU/L (46-116); ANION GAP 13 (8-16); ASPARTATE AMINO TRANSFERASE 27 U/L (10-37); BILIRUBIN,TOTAL 1.2 MG/DL (0.1-1.0); BLOOD UREA NITROGEN 55 MG/DL (7-18); BUN/CREATININE RATIO 30.9 (6.6-38.0); CALCIUM 8.9 MG/DL (8.5-10.1); CHLORIDE 104 MMOL/L (99-107); CREATININE 1.78 MG/DL (0.40-0.90); GLUCOSE 155 MG/DL (70-104); POTASSIUM 3.4 MMOL/L (3.5-5.1); SODIUM 143 MMOL/L (135-145); TOTAL CARBON DIOXIDE 25.7 MMOL/L (24-32); TOTAL PROTEIN 6.4 G/DL (6.4-8.2); eGFR 27 ML/MIN
[2018-08-01] MEDS: docusate sod 100mg capsule PO SCH ×2 (08:00→20:00)
[2018-08-01] MEDS: bisacodyl 5mg tablet.DR PO SCH ×2 (08:56→20:00)
[2018-08-01] MEDS: metoprolol succinate 25mg (24-HOUR) SR. Tablet PO SCH (08:57)
[2018-08-01] MEDS: levoTHYROXINE 88mcg tablet PO SCH (08:57)
[2018-08-01] MEDS: losartan 50mg tablet PO SCH (08:57)
[2018-08-01] MEDS: pantoprazole 40 MG vial IV SCH (09:03)
[2018-08-01 11:52] LABS: BASOPHILS % (AUTO) 0.4 % (0-1); EOSINOPHILS # (AUTO) 0.1 X10'3 (0-0.9); EOSINOPHILS % (AUTO) 0.7 % (0-6); HEMATOCRIT 28.5 % (35.0-45.0); HEMOGLOBIN 9.3 g/dl (12.0-16.0); LYMPHOCYTES # (AUTO) 1.4 X10'3 (1.1-4.8); LYMPHOCYTES % (AUTO) 16.1 % (21-51); MEAN CORPUSCULAR HEMOGLOBIN 27.8 PG (27.0-31.0); MEAN CORPUSCULAR HGB CONC 32.7 % (33.0-36.5); MEAN CORPUSCULAR VOLUME 85.2 FL (78-98); MEAN PLATELET VOLUME 10.1 FL (7.4-10.4); MONOCYTES # (AUTO) 0.7 X10'3 (0-0.9); MONOCYTES % (AUTO) 8.1 % (2-12); NEUTROPHILS # (AUTO) 6.7 X10'3 (1.8-7.7); NEUTROPHILS % (AUTO) 74.7 % (42-75); PLATELET COUNT 183 X10'3 (140-440); RED BLOOD COUNT 3.34 X10'6 (4.20-5.60); WHITE BLOOD COUNT 8.9 X10'3 (4.5-11.0)
[2018-08-01] MEDS ORDERED: MIDAZolam 5mg/5ml vial ONE (14:15)
[2018-08-01] MEDS ORDERED: fentaNYL/PF 50MCG/1 ML 2ML syringe ONE (14:15)
[2018-08-01] MEDS ORDERED: potassium Cl 20 mEq SR tablet PO PRN ×2 (16:40)
[2018-08-01] MEDS ORDERED: potassium Cl 40MEQ/NS 500ml 500 ML IV PRN ×2 (16:40)
[2018-08-01] MEDS: insulin Lispro (HumaLOG) vial - multi-dose SQ SCH (18:43)
[2018-08-01 20:10] LABS: HEMATOCRIT 30.7 % (35.0-45.0); HEMOGLOBIN 9.7 g/dl (12.0-16.0); MEAN CORPUSCULAR HEMOGLOBIN 27.1 PG (27.0-31.0); MEAN CORPUSCULAR HGB CONC 31.6 % (33.0-36.5); MEAN CORPUSCULAR VOLUME 85.6 FL (78-98); MEAN PLATELET VOLUME 9.8 FL (7.4-10.4); PLATELET COUNT 188 X10'3 (140-440); RED BLOOD COUNT 3.59 X10'6 (4.20-5.60); RED CELL DISTRIBUTION WIDTH 18.9 % (11.5-14.5); WHITE BLOOD COUNT 7.1 X10'3 (4.5-11.0)
[2018-08-01] MEDS: atorvastatin 20mg tablet PO SCH (20:11)
[2018-08-01] MEDS: pantoprazole 40mg Tablet.DR PO SCH (20:11)
[2018-08-01] MEDS: insulin glargine (Lantus) pen - multi-dose SQ SCH (21:04)
[2018-08-02] VITALS: BP 117/73
[2018-08-02 05:37] LABS: BASOPHILS % (AUTO) 0.6 % (0-1); EOSINOPHILS # (AUTO) 0.2 X10'3 (0-0.9); EOSINOPHILS % (AUTO) 2.2 % (0-6); HEMATOCRIT 28.6 % (35.0-45.0); HEMOGLOBIN 9.3 g/dl (12.0-16.0); LYMPHOCYTES # (AUTO) 1.5 X10'3 (1.1-4.8); LYMPHOCYTES % (AUTO) 22.4 % (21-51); MEAN CORPUSCULAR HEMOGLOBIN 27.5 PG (27.0-31.0); MEAN CORPUSCULAR HGB CONC 32.5 % (33.0-36.5); MEAN CORPUSCULAR VOLUME 84.8 FL (78-98); MEAN PLATELET VOLUME 10.4 FL (7.4-10.4); MONOCYTES # (AUTO) 0.5 X10'3 (0-0.9); MONOCYTES % (AUTO) 7.1 % (2-12); NEUTROPHILS # (AUTO) 4.7 X10'3 (1.8-7.7); NEUTROPHILS % (AUTO) 67.7 % (42-75); PLATELET COUNT 161 X10'3 (140-440); RED BLOOD COUNT 3.38 X10'6 (4.20-5.60); RED CELL DISTRIBUTION WIDTH 18.5 % (11.5-14.5); WHITE BLOOD COUNT 6.9 X10'3 (4.5-11.0)
[2018-08-02 05:52] LABS: ALANINE AMINOTRANSFERASE 21 U/L (12-78); ALBUMIN 2.6 G/DL (3.4-5.0); ALBUMIN/GLOBULIN RATIO 1.2 (1.1-1.5); ALKALINE PHOSPHATASE 55 IU/L (46-116); ANION GAP 8 (8-16); ASPARTATE AMINO TRANSFERASE 21 U/L (10-37); BLOOD UREA NITROGEN 39 MG/DL (7-18); CALCIUM 8.1 MG/DL (8.5-10.1); CHLORIDE 109 MMOL/L (99-107); GLUCOSE 80 MG/DL (70-104); MAGNESIUM 1.7 MG/DL (1.5-2.4); SODIUM 145 MMOL/L (135-145); TOTAL PROTEIN 4.8 G/DL (6.4-8.2); eGFR 33 ML/MIN
[2018-08-02 07:30] VITALS: BP 151/47
[2018-08-02] MEDS: bisacodyl 5mg tablet.DR PO SCH (08:00)
[2018-08-02] MEDS: docusate sod 100mg capsule PO SCH (08:00)
[2018-08-02] MEDS: losartan 50mg tablet PO SCH (08:39)
[2018-08-02] MEDS: metoprolol succinate 25mg (24-HOUR) SR. Tablet PO SCH (08:39)
[2018-08-02] MEDS: pantoprazole 40mg Tablet.DR PO SCH (08:39)
[2018-08-02] MEDS: levoTHYROXINE 88mcg tablet PO SCH (08:39)
[2018-08-02] MEDS: insulin Lispro (HumaLOG) vial - multi-dose SQ SCH ×2 (08:44→14:08)
[2018-08-02 11:54] VITALS: BP 132/47
[2018-08-02] MEDS ORDERED: PANT40TA4 PO (13:26)
== END 2018-08-02 15:29 | disposition home or self-care (01) | DRG 377 ==
LOC: ER 18:30 → ED HOLD 23:05 → SUR 3N 07-29 03:20
PROVIDERS: ADMIT Family Medicine; ATTEND Internal Medicine
PROC: 30233N1 Transfusion of Nonautologous Red Blood Cells into Peripheral Vein, Percutaneous Approach (ICD-10-PCS; principal; 2018-07-28)
PROC: 30233N1 Transfusion of Nonautologous Red Blood Cells into Peripheral Vein, Percutaneous Approach (ICD-10-PCS; 2018-07-30)
PROC: 0DB98ZX Excision of Duodenum, Via Natural or Artificial Opening Endoscopic, Diagnostic (ICD-10-PCS; 2018-07-31)
PROC: 0DB68ZX Excision of Stomach, Via Natural or Artificial Opening Endoscopic, Diagnostic (ICD-10-PCS; 2018-07-31)
PROC: 0DBK8ZZ Excision of Ascending Colon, Via Natural or Artificial Opening Endoscopic (ICD-10-PCS; 2018-08-01)
DX: K92.2 Gastrointestinal hemorrhage, unspecified (principal); I50.23 Acute on chronic systolic (congestive) heart failure; I21.A1 Myocardial infarction type 2; N17.9 Acute kidney failure, unspecified; J44.1 Chronic obstructive pulmonary disease with (acute) exacerbation; I13.0 Hypertensive heart and chronic kidney disease with heart failure and stage 1 through stage 4 chronic kidney disease, or unspecified chronic kidney disease; J96.11 Chronic respiratory failure with hypoxia; D62 Acute posthemorrhagic anemia; E03.9 Hypothyroidism, unspecified; E11.22 Type 2 diabetes mellitus with diabetic chronic kidney disease; E11.65 Type 2 diabetes mellitus with hyperglycemia; G89.29 Other chronic pain; I95.9 Hypotension, unspecified; I07.1 Rheumatic tricuspid insufficiency; D12.2 Benign neoplasm of ascending colon; E78.5 Hyperlipidemia, unspecified; I25.10 Atherosclerotic heart disease of native coronary artery without angina pectoris; K63.5 Polyp of colon; N18.3 Chronic kidney disease, stage 3 (moderate); I25.2 Old myocardial infarction; Z95.0 Presence of cardiac pacemaker; Z95.1 Presence of aortocoronary bypass graft; Z99.81 Dependence on supplemental oxygen; Z90.49 Acquired absence of other specified parts of digestive tract; Z79.899 Other long term (current) drug therapy; Z79.84 Long term (current) use of oral hypoglycemic drugs; Z79.4 Long term (current) use of insulin; Z85.038 Personal history of other malignant neoplasm of large intestine; Z87.891 Personal history of nicotine dependence
CPT/HCPCS: 36415; 43239; 45385; 71045; 80053; 82272; 82948; 83036; 83605; 83735; 83880; 84100; 84484; 85025; 85027; 85610; 85730; 86885; 86900; 86901; 86920; 87040; 87070; 88300; 93005; 93306; 94640; 94760; 96374; 99152; 99153; 99291; A4620; C9113; G0378; J0696; J1815; J1940; J2250; J2930; J3010; J7030; P9016

== ENCOUNTER 2018-12-09 08:06 | Emergency (ER) | payer MEDICARE, BC ==
[~2018-12-09] VITALS: Ht 157.5 cm; Wt 81.7 kg
[~2018-12-09 08:06] MED LIST changes: -ALLO100T PO; -AMLO10TA4 PO; -APIX2.5T PO; -FURO-150 PO; +FURO40TA4 PO; -HYDR-3965 PO; +INSU100I31; +INSU100V13 SQ; -LANTUS SQ; -LEVO75TA PO; +LEVO88TA7 PO; +LOPE2CAP PO; +LOSA100T57 PO; -METO-384 PO; +METO-395 PO; +PANT40TA4 PO; +POTA8TAB3; -SERT25TA PO
[2018-12-09] MEDS ORDERED: albuterol 2.5 MG/3 ML nebule NEB ONE (08:40)
[2018-12-09] MEDS ORDERED: magnesium 2GM in 50ml NS 50 ML IV ONE (08:40)
[2018-12-09] MEDS ORDERED: methylPREDNISolone sod succ 125mg/2ml vial IV ONE (08:40)
[2018-12-09] MEDS ORDERED: ipratropium/albuterol 3ml nebule NEB ONE (08:40)
[2018-12-09 09:11] LABS: BASOPHILS # (AUTO) 0.1 X10'3 (0-0.2); EOSINOPHILS # (AUTO) 0.2 X10'3 (0-0.9); EOSINOPHILS % (AUTO) 2.4 % (0-6); HEMATOCRIT 37.7 % (35.0-45.0); HEMOGLOBIN 12.1 g/dl (12.0-16.0); LYMPHOCYTES % (AUTO) 15.6 % (21-51); MEAN CORPUSCULAR HGB CONC 32.1 g/dL (33.0-36.5); MEAN PLATELET VOLUME 9.2 FL (7.4-10.4); MONOCYTES # (AUTO) 0.4 X10'3 (0-0.9); NEUTROPHILS # (AUTO) 4.7 X10'3 (1.8-7.7); PLATELET COUNT 153 X10'3 (140-440); RED BLOOD COUNT 4.65 X10'6 (4.20-5.60); RED CELL DISTRIBUTION WIDTH 15.4 % (11.5-14.5); WHITE BLOOD COUNT 6.4 X10'3 (4.5-11.0)
[2018-12-09 09:22] LABS: INR 1.1 INR; PARTIAL THROMBOPLASTIN TIME 30 SECONDS (22-32)
[2018-12-09 09:26] LABS: ALANINE AMINOTRANSFERASE 21 U/L (12-78); ALBUMIN 3.2 G/DL (3.4-5.0); ALKALINE PHOSPHATASE 68 IU/L (46-116); ANION GAP 7 (8-16); ASPARTATE AMINO TRANSFERASE 19 U/L (10-37); BILIRUBIN,TOTAL 0.8 MG/DL (0.1-1.0); BLOOD UREA NITROGEN 38 MG/DL (7-18); BUN/CREATININE RATIO 19.6 (6.6-38.0); CALCIUM 9.3 MG/DL (8.5-10.1); CHLORIDE 104 MMOL/L (99-107); CREATININE 1.94 MG/DL (0.40-0.90); GLUCOSE 119 MG/DL (70-104); POTASSIUM 4.8 MMOL/L (3.5-5.1); SODIUM 140 MMOL/L (135-145); TOTAL CARBON DIOXIDE 28.8 MMOL/L (24-32); TOTAL PROTEIN 6.4 G/DL (6.4-8.2); eGFR 25 ML/MIN
[2018-12-09 09:32] LABS: MAGNESIUM 1.9 MG/DL (1.5-2.4)
[2018-12-09] MEDS ORDERED: furosemide 10 MG/1 ML 10ml inj IV ONE (10:00)
[2018-12-09] MEDS ORDERED: AZIT-63 PO (10:02)
[2018-12-09] MEDS ORDERED: PRED20TA PO (10:02)
[2018-12-09 10:15] VITALS: BP 169/61
== END 2018-12-09 11:10 | disposition home or self-care (01) ==
LOC: ER 08:07
DX: I50.9 Heart failure, unspecified (principal); J44.1 Chronic obstructive pulmonary disease with (acute) exacerbation; I11.0 Hypertensive heart disease with heart failure; I25.10 Atherosclerotic heart disease of native coronary artery without angina pectoris; I25.2 Old myocardial infarction; E11.9 Type 2 diabetes mellitus without complications; G89.29 Other chronic pain; Z90.49 Acquired absence of other specified parts of digestive tract; Z98.890 Other specified postprocedural states; Z79.899 Other long term (current) drug therapy; Z79.4 Long term (current) use of insulin; Z87.891 Personal history of nicotine dependence
CPT/HCPCS: 36415; 71045; 80053; 83605; 83735; 83880; 84145; 84484; 85025; 85610; 85730; 93005; 94640; 96365; 96366; 96375; 99284; J1940; J2930; J3475

== ENCOUNTER 2018-12-26 10:04 | Emergency (ER) | payer MEDICARE, BC ==
[~2018-12-26] VITALS: Ht 157.5 cm; Wt 73.0 kg
[~2018-12-26 10:04] MED LIST changes: +AZIT-63 PO; +PRED20TA PO
[2018-12-26] MEDS ORDERED: aspirin 325mg tablet PO ONE (10:50)
[2018-12-26 12:08] VITALS: BP 161/50
== END 2018-12-26 12:12 | disposition home or self-care (01) ==
LOC: ER 10:05
DX: H53.8 Other visual disturbances (principal); I25.10 Atherosclerotic heart disease of native coronary artery without angina pectoris; I10 Essential (primary) hypertension; I25.2 Old myocardial infarction; J44.9 Chronic obstructive pulmonary disease, unspecified; E11.9 Type 2 diabetes mellitus without complications; G89.29 Other chronic pain; Z85.038 Personal history of other malignant neoplasm of large intestine; Z95.1 Presence of aortocoronary bypass graft; Z98.890 Other specified postprocedural states; Z90.49 Acquired absence of other specified parts of digestive tract; Z95.0 Presence of cardiac pacemaker; Z79.4 Long term (current) use of insulin; Z79.899 Other long term (current) drug therapy
CPT/HCPCS: 70450; 99284

== ENCOUNTER 2019-02-17 09:21 | Outpatient (CLI) | payer MEDICARE, BC ==
[~2019-02-17 09:21] MED LIST changes: -AZIT-63 PO; -PRED20TA PO
[2019-02-17 09:52] LABS: BASOPHILS # (AUTO) 0.1 X10'3 (0-0.2); BASOPHILS % (AUTO) 0.9 % (0-1); EOSINOPHILS # (AUTO) 0.2 X10'3 (0-0.9); HEMATOCRIT 38.1 % (35.0-45.0); HEMOGLOBIN 12.1 g/dl (12.0-16.0); LYMPHOCYTES # (AUTO) 1.6 X10'3 (1.1-4.8); LYMPHOCYTES % (AUTO) 20.5 % (21-51); MEAN CORPUSCULAR HEMOGLOBIN 26.7 PG (27.0-31.0); MEAN CORPUSCULAR HGB CONC 31.8 g/dL (33.0-36.5); MEAN CORPUSCULAR VOLUME 83.8 FL (78-98); MEAN PLATELET VOLUME 9.5 FL (7.4-10.4); MONOCYTES # (AUTO) 0.8 X10'3 (0-0.9); MONOCYTES % (AUTO) 9.8 % (2-12); NEUTROPHILS # (AUTO) 5.1 X10'3 (1.8-7.7); NEUTROPHILS % (AUTO) 66.8 % (42-75); PLATELET COUNT 168 X10'3 (140-440); RED BLOOD COUNT 4.55 X10'6 (4.20-5.60); WHITE BLOOD COUNT 7.7 X10'3 (4.5-11.0)
[2019-02-17 10:07] LABS: ALBUMIN 3.5 G/DL (3.4-5.0); ANION GAP 7 (8-16); BLOOD UREA NITROGEN 47 MG/DL (7-18); BUN/CREATININE RATIO 23.5 (6.6-38.0); CALCIUM 10.2 MG/DL (8.5-10.1); CHLORIDE 104 MMOL/L (99-107); GLUCOSE 123 MG/DL (70-104); POTASSIUM 4.5 MMOL/L (3.5-5.1); SODIUM 137 MMOL/L (135-145); TOTAL CARBON DIOXIDE 26.5 MMOL/L (24-32); eGFR 24 ML/MIN
[2019-02-17 10:09] LABS: PARTIAL THROMBOPLASTIN TIME 30 SECONDS (22-32)
[2019-02-28 09:11] LABS: BASOPHILS # (AUTO) 0.1 X10'3 (0-0.2); BASOPHILS % (AUTO) 0.7 % (0-1); EOSINOPHILS # (AUTO) 0.2 X10'3 (0-0.9); EOSINOPHILS % (AUTO) 2.3 % (0-6); HEMOGLOBIN 10.9 g/dl (12.0-16.0); LYMPHOCYTES # (AUTO) 1.1 X10'3 (1.1-4.8); LYMPHOCYTES % (AUTO) 15.6 % (21-51); MEAN CORPUSCULAR HEMOGLOBIN 26.9 PG (27.0-31.0); MEAN CORPUSCULAR VOLUME 84.2 FL (78-98); MEAN PLATELET VOLUME 9.9 FL (7.4-10.4); MONOCYTES # (AUTO) 0.6 X10'3 (0-0.9); MONOCYTES % (AUTO) 8.1 % (2-12); NEUTROPHILS # (AUTO) 5.2 X10'3 (1.8-7.7); NEUTROPHILS % (AUTO) 73.3 % (42-75); PLATELET COUNT 184 X10'3 (140-440); RED BLOOD COUNT 4.04 X10'6 (4.20-5.60); RED CELL DISTRIBUTION WIDTH 16.7 % (11.5-14.5); WHITE BLOOD COUNT 7.1 X10'3 (4.5-11.0)
[2019-02-28 09:20] LABS: ALBUMIN 3.3 G/DL (3.4-5.0); ANION GAP 10 (8-16); BLOOD UREA NITROGEN 40 MG/DL (7-18); CALCIUM 9.5 MG/DL (8.5-10.1); CHLORIDE 102 MMOL/L (99-107); GLUCOSE 159 MG/DL (70-104); POTASSIUM 4.5 MMOL/L (3.5-5.1); SODIUM 138 MMOL/L (135-145); TOTAL CARBON DIOXIDE 25.9 MMOL/L (24-32); eGFR 24 ML/MIN
[2019-02-28 09:26] LABS: PARTIAL THROMBOPLASTIN TIME 31 SECONDS (22-32)
== END 2019-02-17 23:59 | disposition home or self-care (01) ==
LOC: SSTAY O 09:21 → EDSTATUS 03-04 17:00
PROVIDERS: ATTEND Internal Medicine Interventional Cardiology
DX: I25.810 Atherosclerosis of coronary artery bypass graft(s) without angina pectoris (principal); I70.213 Atherosclerosis of native arteries of extremities with intermittent claudication, bilateral legs; G45.3 Amaurosis fugax; E11.22 Type 2 diabetes mellitus with diabetic chronic kidney disease; I12.9 Hypertensive chronic kidney disease with stage 1 through stage 4 chronic kidney disease, or unspecified chronic kidney disease; N18.4 Chronic kidney disease, stage 4 (severe); I48.91 Unspecified atrial fibrillation; R60.0 Localized edema; G47.10 Hypersomnia, unspecified; I42.8 Other cardiomyopathies; R21 Rash and other nonspecific skin eruption; I48.2 Chronic atrial fibrillation; E78.49 Other hyperlipidemia; Z95.0 Presence of cardiac pacemaker
CPT/HCPCS: 36415; 80048; 85025; 85610; 85730

== ENCOUNTER 2019-03-16 09:17 | Inpatient (IN) | payer MEDICARE, BC ==
[~2019-03-16] VITALS: Ht 154.9 cm; Wt 81.3 kg
[2019-03-16] MEDS ORDERED: ipratropium/albuterol 3ml nebule NEB ONE (09:35)
[2019-03-16] MEDS ORDERED: methylPREDNISolone sod succ 125mg/2ml vial IV ONE (09:35)
[2019-03-16 10:02] LABS: BASOPHILS % (AUTO) 0.4 % (0-1); EOSINOPHILS % (AUTO) 0.4 % (0-6); HEMATOCRIT 27.9 % (35.0-45.0); HEMOGLOBIN 9.1 g/dl (12.0-16.0); LYMPHOCYTES # (AUTO) 0.9 X10'3 (1.1-4.8); MEAN CORPUSCULAR HEMOGLOBIN 27.3 PG (27.0-31.0); MEAN CORPUSCULAR HGB CONC 32.7 g/dL (33.0-36.5); MEAN CORPUSCULAR VOLUME 83.5 FL (78-98); MEAN PLATELET VOLUME 9.5 FL (7.4-10.4); MONOCYTES # (AUTO) 1.1 X10'3 (0-0.9); MONOCYTES % (AUTO) 10.2 % (2-12); NEUTROPHILS # (AUTO) 8.6 X10'3 (1.8-7.7); PLATELET COUNT 177 X10'3 (140-440); RED BLOOD COUNT 3.34 X10'6 (4.20-5.60); RED CELL DISTRIBUTION WIDTH 16.3 % (11.5-14.5); WHITE BLOOD COUNT 10.6 X10'3 (4.5-11.0)
[2019-03-16 10:13] LABS: PARTIAL THROMBOPLASTIN TIME 38 SECONDS (22-32)
[2019-03-16 10:15] LABS: ALANINE AMINOTRANSFERASE 16 U/L (12-78); ALBUMIN 2.6 G/DL (3.4-5.0); ALBUMIN/GLOBULIN RATIO 0.7 (1.1-1.5); ALKALINE PHOSPHATASE 55 IU/L (46-116); ANION GAP 11 (8-16); ASPARTATE AMINO TRANSFERASE 12 U/L (10-37); BILIRUBIN,TOTAL 1.7 MG/DL (0.1-1.0); BLOOD UREA NITROGEN 40 MG/DL (7-18); BUN/CREATININE RATIO 16.3 (6.6-38.0); CALCIUM 9.1 MG/DL (8.5-10.1); CHLORIDE 100 MMOL/L (99-107); CREATININE 2.46 MG/DL (0.40-0.90); GLUCOSE 121 MG/DL (70-104); POTASSIUM 4.2 MMOL/L (3.5-5.1); SODIUM 136 MMOL/L (135-145); TOTAL CARBON DIOXIDE 25.3 MMOL/L (24-32); TOTAL PROTEIN 6.5 G/DL (6.4-8.2); eGFR 19 ML/MIN
[2019-03-16] MEDS ORDERED: furosemide 10 MG/1 ML 10ml inj IV ONE (10:55)
[2019-03-16] MEDS ORDERED: mag hydrox/Alum hydrox/simeth 30ml oral suspension PO PRN (12:15)
[2019-03-16] MEDS ORDERED: magnesium hydroxide 30ml (MOM) UD suspension PO PRN (12:15)
[2019-03-16] MEDS ORDERED: ondansetron/PF 4mg/2ml inj IV PRN (12:15)
[2019-03-16] MEDS ORDERED: acetaminophen 325mg tablet PO PRN (12:15)
--- NOTE | 2019-03-16 14:25 | NUR ---
received report from EDENILSON Curran in ER
--- NOTE | 2019-03-16 14:52 | NUR ---
pt arrived to floor in stable condition with daughter at bedside. pt oriented to room, bed in low position, locked. call light in reach. paged Dr. Nguyễn to let him know pt has arrived to unit.
[2019-03-16 14:55] VITALS: BP 106/50
--- NOTE | 2019-03-16 14:55 | NUR ---
paged dr. ram Page Sent promotional table spacer PAGER ID: [phone] MESSAGE: barby helene [phone] [id number] arnel mobley has arrived to floor
[2019-03-16] MEDS: ipratropium/albuterol 3ml nebule NEB SCH ×3 (15:33→22:55)
[2019-03-16] MEDS ORDERED: MESSAGE TO PHARMACY PO ONE (15:45)
[2019-03-16] MEDS ORDERED: dextrose 50%-water 50ml dispensing syringe IV PRN ×2 (15:45)
[2019-03-16] MEDS ORDERED: glucagon, human recombinant 1mg kit SUBCUT PRN (15:45)
[2019-03-16] MEDS ORDERED: dextrose ORAL solution 15 GM/59 ML bottle PO PRN (15:45)
[2019-03-16] MEDS: methylPREDNISolone sod succ/PF 40mg inj. IV SCH (16:10)
[2019-03-16] MEDS ORDERED: POTA8CAP20 PO (17:49)
[2019-03-16] MEDS ORDERED: LEVO75TA7 PO (17:51)
[2019-03-16] MEDS ORDERED: APIX5TAB3 PO (17:52)
[2019-03-16] MEDS ORDERED: METO50TA7 PO (17:53)
[2019-03-16] MEDS ORDERED: SERT25TA PO (17:54)
[2019-03-16 18:00] VITALS: BP 103/50
[2019-03-16] MEDS: CefTRIAXone/D5W-Rocephin 1gm 50 ML IV SCH (18:10)
--- NOTE | 2019-03-16 18:31 | NUR ---
Problems reprioritized. Patient report given, questions answered & plan of care reviewed with EDENILSON Bernal.
[2019-03-16] MEDS: heparin, porcine 5000 units/ml vial SQ SCH (20:15)
[2019-03-16] MEDS: furosemide 20 MG/2 ML vial IV SCH (20:15)
[2019-03-16] MEDS: apixaban 5mg tablet PO SCH (20:15)
[2019-03-16] MEDS: atorvastatin 20mg tablet PO SCH (20:16)
[2019-03-16] MEDS: insulin Lispro (HumaLOG) vial - multi-dose SQ SCH (20:21)
[2019-03-16] MEDS: insulin glargine (Lantus) pen - multi-dose SQ SCH (20:26)
[2019-03-16] MEDS ORDERED: non-formulary drug (Atorvastatin Calcium* (Lipitor*) 80 MG) PO SCH (21:00)
[2019-03-16 22:00] VITALS: BP 112/46
[2019-03-17] MEDS: methylPREDNISolone sod succ/PF 40mg inj. IV SCH ×3 (00:09→16:31)
[2019-03-17 02:00] VITALS: BP 127/55
[2019-03-17] MEDS: ipratropium/albuterol 3ml nebule NEB SCH ×6 (02:56→23:17)
[2019-03-17 06:00] VITALS: BP 136/58
--- NOTE | 2019-03-17 06:20 | NUR ---
Patient in room PCU 3014. I have received report from EDENILSON Bernal and had the opportunity to ask questions and assume patient care.
[2019-03-17 06:31] LABS: BASOPHILS % (AUTO) 0.2 % (0-1); EOSINOPHILS % (AUTO) 0 % (0-6); HEMATOCRIT 25.9 % (35.0-45.0); HEMOGLOBIN 8.6 g/dl (12.0-16.0); LYMPHOCYTES # (AUTO) 0.3 X10'3 (1.1-4.8); LYMPHOCYTES % (AUTO) 3.7 % (21-51); MEAN CORPUSCULAR HEMOGLOBIN 27.5 PG (27.0-31.0); MEAN CORPUSCULAR HGB CONC 33.3 g/dL (33.0-36.5); MEAN CORPUSCULAR VOLUME 82.6 FL (78-98); MEAN PLATELET VOLUME 10.1 FL (7.4-10.4); MONOCYTES # (AUTO) 0.3 X10'3 (0-0.9); MONOCYTES % (AUTO) 3.7 % (2-12); NEUTROPHILS # (AUTO) 7.6 X10'3 (1.8-7.7); NEUTROPHILS % (AUTO) 92.4 % (42-75); PLATELET COUNT 171 X10'3 (140-440); RED BLOOD COUNT 3.14 X10'6 (4.20-5.60); RED CELL DISTRIBUTION WIDTH 16.2 % (11.5-14.5); WHITE BLOOD COUNT 8.2 X10'3 (4.5-11.0)
[2019-03-17 06:32] LABS: ALBUMIN 2.3 G/DL (3.4-5.0); ANION GAP 12 (8-16); BLOOD UREA NITROGEN 57 MG/DL (7-18); BUN/CREATININE RATIO 20.1 (6.6-38.0); CALCIUM 9.1 MG/DL (8.5-10.1); CHLORIDE 100 MMOL/L (99-107); CREATININE 2.84 MG/DL (0.40-0.90); GLUCOSE 216 MG/DL (70-104); POTASSIUM 4.1 MMOL/L (3.5-5.1); SODIUM 137 MMOL/L (135-145); TOTAL CARBON DIOXIDE 25.2 MMOL/L (24-32); eGFR 16 ML/MIN
[2019-03-17] MEDS: CefTRIAXone/D5W-Rocephin 1gm 50 ML IV SCH (07:28)
[2019-03-17] MEDS: furosemide 20 MG/2 ML vial IV SCH ×2 (07:34→20:02)
[2019-03-17] MEDS: metoprolol succinate 25mg (24-HOUR) SR. Tablet PO SCH (07:35)
[2019-03-17] MEDS: levoTHYROXINE 75mcg tablet PO SCH (07:35)
[2019-03-17] MEDS: apixaban 5mg tablet PO SCH ×2 (07:35→20:03)
[2019-03-17] MEDS: heparin, porcine 5000 units/ml vial SQ SCH (07:37)
[2019-03-17] MEDS ORDERED: non-formulary drug (Metoprolol Succinate* (Toprol Xl*) 1 TAB) PO SCH (08:00)
[2019-03-17] MEDS: insulin Lispro (HumaLOG) vial - multi-dose SQ SCH ×3 (09:01→18:53)
[2019-03-17 12:11] VITALS: BP 104/42
[2019-03-17] MEDS: nystatin 15 GM powder TP SCH (12:45)
[2019-03-17 15:00] VITALS: BP 133/56
[2019-03-17 18:00] VITALS: BP 113/59
--- NOTE | 2019-03-17 18:20 | NUR ---
Received report from EDENILSON Majano. Patient is awake and alert on 2L NC, in no apparent distress. Having dinner. CAll light and items of frequent use within reach. Will continue to monitor.
--- NOTE | 2019-03-17 18:41 | NUR ---
Problems reprioritized. Patient report given, questions answered & plan of care reviewed with EDENILSON Reyes.
[2019-03-17] MEDS: atorvastatin 20mg tablet PO SCH (20:03)
[2019-03-17] MEDS: lactobacillus rhamnosus 10,000 MMU CELLS/CAPSULE PO SCH (20:03)
[2019-03-17] MEDS: insulin glargine (Lantus) pen - multi-dose SQ SCH (21:45)
[2019-03-17 22:00] VITALS: BP 127/49
[2019-03-18] MEDS: methylPREDNISolone sod succ/PF 40mg inj. IV SCH ×3 (00:14→20:45)
[2019-03-18 02:00] VITALS: BP 137/53
[2019-03-18] MEDS: ipratropium/albuterol 3ml nebule NEB SCH ×6 (03:02→22:46)
[2019-03-18 05:09] LABS: BASOPHILS % (AUTO) 0.1 % (0-1); EOSINOPHILS % (AUTO) 0 % (0-6); HEMOGLOBIN 8.7 g/dl (12.0-16.0); LYMPHOCYTES # (AUTO) 0.3 X10'3 (1.1-4.8); LYMPHOCYTES % (AUTO) 2.7 % (21-51); MEAN CORPUSCULAR HEMOGLOBIN 27.1 PG (27.0-31.0); MEAN CORPUSCULAR HGB CONC 32.4 g/dL (33.0-36.5); MEAN CORPUSCULAR VOLUME 83.6 FL (78-98); MONOCYTES # (AUTO) 0.3 X10'3 (0-0.9); MONOCYTES % (AUTO) 3.2 % (2-12); NEUTROPHILS # (AUTO) 9.3 X10'3 (1.8-7.7); PLATELET COUNT 215 X10'3 (140-440); RED BLOOD COUNT 3.23 X10'6 (4.20-5.60); RED CELL DISTRIBUTION WIDTH 16.5 % (11.5-14.5); WHITE BLOOD COUNT 9.9 X10'3 (4.5-11.0)
[2019-03-18 05:31] LABS: ALBUMIN 2.6 G/DL (3.4-5.0); ANION GAP 12 (8-16); BLOOD UREA NITROGEN 78 MG/DL (7-18); BUN/CREATININE RATIO 24.6 (6.6-38.0); CALCIUM 9.1 MG/DL (8.5-10.1); CHLORIDE 101 MMOL/L (99-107); CREATININE 3.17 MG/DL (0.40-0.90); GLUCOSE 264 MG/DL (70-104); SODIUM 137 MMOL/L (135-145); TOTAL CARBON DIOXIDE 24.1 MMOL/L (24-32); eGFR 14 ML/MIN
--- NOTE | 2019-03-18 06:18 | NUR ---
Problems reprioritized. Patient report given, questions answered & plan of care reviewed with EDENILSON Briggs.
--- NOTE | 2019-03-18 06:52 | NUR ---
Patient in room PCU 3014. I have received report from Amy PYLE and had the opportunity to ask questions and assume patient care.
[2019-03-18 07:07] VITALS: BP 161/70
[2019-03-18] MEDS: levoTHYROXINE 75mcg tablet PO SCH (07:20)
[2019-03-18] MEDS: lactobacillus rhamnosus 10,000 MMU CELLS/CAPSULE PO SCH ×2 (07:21→20:43)
[2019-03-18] MEDS: metoprolol succinate 25mg (24-HOUR) SR. Tablet PO SCH (07:21)
[2019-03-18] MEDS: apixaban 5mg tablet PO SCH ×2 (07:21→20:44)
[2019-03-18] MEDS: furosemide 20 MG/2 ML vial IV SCH ×2 (07:22→20:44)
[2019-03-18] MEDS: CefTRIAXone/D5W-Rocephin 1gm 50 ML IV SCH (07:25)
[2019-03-18] MEDS: nystatin 15 GM powder TP SCH (07:25)
[2019-03-18] MEDS: insulin Lispro (HumaLOG) vial - multi-dose SQ SCH ×3 (08:56→19:01)
[2019-03-18 11:00] VITALS: BP 145/62
[2019-03-18 15:00] VITALS: BP 150/78
[2019-03-18] MEDS: dextrose ORAL solution 15 GM/59 ML bottle PO PRN (17:09)
--- NOTE | 2019-03-18 17:10 | NUR ---
Blood glucose 47, administered 2 glucose shots, tolerated well.
--- NOTE | 2019-03-18 17:25 | NUR ---
Rechecked blood glucose, noted 71, provided juice and crackers at this time.
--- NOTE | 2019-03-18 18:17 | NUR ---
Problems reprioritized. Patient report given, questions answered & plan of care reviewed with Sachin PYLE.
[2019-03-18 19:00] VITALS: BP 147/51
[2019-03-18] MEDS: atorvastatin 20mg tablet PO SCH (20:43)
[2019-03-18] MEDS: insulin glargine (Lantus) pen - multi-dose SQ SCH (21:12)
[2019-03-18 23:00] VITALS: BP 167/55
[2019-03-19] MEDS: ipratropium/albuterol 3ml nebule NEB SCH ×6 (02:39→23:33)
[2019-03-19 03:00] VITALS: BP 153/58
[2019-03-19 04:52] LABS: BASOPHILS % (AUTO) 0 % (0-1); EOSINOPHILS % (AUTO) 0 % (0-6); HEMATOCRIT 25.7 % (35.0-45.0); HEMOGLOBIN 8.4 g/dl (12.0-16.0); LYMPHOCYTES # (AUTO) 0.3 X10'3 (1.1-4.8); LYMPHOCYTES % (AUTO) 3.3 % (21-51); MEAN CORPUSCULAR HEMOGLOBIN 27.1 PG (27.0-31.0); MEAN CORPUSCULAR HGB CONC 32.8 g/dL (33.0-36.5); MEAN CORPUSCULAR VOLUME 82.7 FL (78-98); MEAN PLATELET VOLUME 9.9 FL (7.4-10.4); MONOCYTES # (AUTO) 0.4 X10'3 (0-0.9); MONOCYTES % (AUTO) 4.3 % (2-12); NEUTROPHILS # (AUTO) 7.8 X10'3 (1.8-7.7); NEUTROPHILS % (AUTO) 92.4 % (42-75); PLATELET COUNT 203 X10'3 (140-440); RED BLOOD COUNT 3.11 X10'6 (4.20-5.60); RED CELL DISTRIBUTION WIDTH 16.2 % (11.5-14.5); WHITE BLOOD COUNT 8.5 X10'3 (4.5-11.0)
[2019-03-19 05:54] LABS: ALBUMIN 2.5 G/DL (3.4-5.0); ANION GAP 13 (8-16); BLOOD UREA NITROGEN 86 MG/DL (7-18); BUN/CREATININE RATIO 30.9 (6.6-38.0); CALCIUM 8.9 MG/DL (8.5-10.1); CHLORIDE 100 MMOL/L (99-107); CREATININE 2.78 MG/DL (0.40-0.90); GLUCOSE 313 MG/DL (70-104); SODIUM 137 MMOL/L (135-145); TOTAL CARBON DIOXIDE 24.4 MMOL/L (24-32); eGFR 16 ML/MIN
[2019-03-19 06:00] VITALS: BP 153/59
--- NOTE | 2019-03-19 06:00 | NUR ---
Patient in room PCU 3014. I have received report from Sachin PYLE and had the opportunity to ask questions and assume patient care.
[2019-03-19] MEDS: levoTHYROXINE 75mcg tablet PO SCH (08:43)
[2019-03-19] MEDS: lactobacillus rhamnosus 10,000 MMU CELLS/CAPSULE PO SCH ×2 (08:43→19:32)
[2019-03-19] MEDS: metoprolol succinate 25mg (24-HOUR) SR. Tablet PO SCH (08:43)
[2019-03-19] MEDS: apixaban 5mg tablet PO SCH ×2 (08:43→19:32)
[2019-03-19] MEDS: furosemide 20 MG/2 ML vial IV SCH ×2 (08:44→19:32)
[2019-03-19] MEDS: nystatin 15 GM powder TP SCH (08:44)
[2019-03-19] MEDS: methylPREDNISolone sod succ/PF 40mg inj. IV SCH ×2 (08:44→19:32)
[2019-03-19] MEDS: CefTRIAXone/D5W-Rocephin 1gm 50 ML IV SCH (08:50)
[2019-03-19] MEDS: insulin Lispro (HumaLOG) vial - multi-dose SQ SCH ×3 (10:30→19:15)
[2019-03-19 11:00] VITALS: BP 172/62
--- NOTE | 2019-03-19 12:03 | NUR ---
Initial: Pt admit with acute on chronic respiratory failure and COPD exacerbation. Per [facility] notes pt with partial thickness IAD. Pt currently on heart healthy CHO controlled diet with documented 50-75% PO intake likely meeting nutrient needs for geriatric age. Per MD notes SOB improving. LBM 03/16. No nutrition diagnosis at this time. Will continue to follow. Recommendations: 1) Continue heart healthy CHO controlled diet 2) Routine bowel care 3) Wt per rx Addendum: 03/19/19 at [address] Amended: Links added.
[2019-03-19 15:00] VITALS: BP 147/57
--- NOTE | 2019-03-19 15:17 | NUR ---
Patient in room PCU 3014. I have received report from Leslie PYLE and had the opportunity to ask questions and assume patient care.
[2019-03-19] MEDS: dextrose ORAL solution 15 GM/59 ML bottle PO PRN (16:55)
--- NOTE | 2019-03-19 18:15 | NUR ---
Problems reprioritized. Patient report given, questions answered & plan of care reviewed with Nikki PYLE.
[2019-03-19 19:00] VITALS: BP 149/59
[2019-03-19] MEDS: NYSTATIN CREAM - 30GM TUBE TP SCH (19:35)
[2019-03-19] MEDS ORDERED: potassium chloride 8mEq ER tablet PO SCH (20:00)
[2019-03-19] MEDS: atorvastatin 20mg tablet PO SCH (21:01)
[2019-03-19] MEDS: insulin glargine (Lantus) pen - multi-dose SQ SCH (21:34)
[2019-03-19 23:00] VITALS: BP 158/44
[2019-03-20 03:00] VITALS: BP 167/65
[2019-03-20] MEDS: ipratropium/albuterol 3ml nebule NEB SCH ×3 (03:14→11:46)
[2019-03-20 05:36] LABS: BASOPHILS % (AUTO) 0 % (0-1); EOSINOPHILS % (AUTO) 0 % (0-6); HEMATOCRIT 25.4 % (35.0-45.0); HEMOGLOBIN 8.4 g/dl (12.0-16.0); LYMPHOCYTES # (AUTO) 0.5 X10'3 (1.1-4.8); LYMPHOCYTES % (AUTO) 5.3 % (21-51); MEAN CORPUSCULAR HEMOGLOBIN 27.3 PG (27.0-31.0); MEAN CORPUSCULAR HGB CONC 33.1 g/dL (33.0-36.5); MEAN CORPUSCULAR VOLUME 82.5 FL (78-98); MEAN PLATELET VOLUME 9.9 FL (7.4-10.4); MONOCYTES # (AUTO) 0.5 X10'3 (0-0.9); MONOCYTES % (AUTO) 4.8 % (2-12); NEUTROPHILS # (AUTO) 8.9 X10'3 (1.8-7.7); NEUTROPHILS % (AUTO) 89.9 % (42-75); PLATELET COUNT 225 X10'3 (140-440); RED BLOOD COUNT 3.08 X10'6 (4.20-5.60); RED CELL DISTRIBUTION WIDTH 16.6 % (11.5-14.5); WHITE BLOOD COUNT 9.9 X10'3 (4.5-11.0)
[2019-03-20 05:46] LABS: ALBUMIN 2.5 G/DL (3.4-5.0); ANION GAP 10 (8-16); BLOOD UREA NITROGEN 84 MG/DL (7-18); BUN/CREATININE RATIO 35.6 (6.6-38.0); CALCIUM 8.9 MG/DL (8.5-10.1); CHLORIDE 105 MMOL/L (99-107); CREATININE 2.36 MG/DL (0.40-0.90); GLUCOSE 224 MG/DL (70-104); POTASSIUM 4.3 MMOL/L (3.5-5.1); SODIUM 140 MMOL/L (135-145); TOTAL CARBON DIOXIDE 25.5 MMOL/L (24-32); eGFR 20 ML/MIN
--- NOTE | 2019-03-20 06:27 | NUR ---
Patient in room PCU 3014. I have received report from Nikki PYLE and had the opportunity to ask questions and assume patient care. Pt is alert and oriented X4 on 2L NC, will continue to monitor.
[2019-03-20 06:37] LABS: ANISOCYTOSIS 1+; PLATELET ESTIMATE DECREASED; SCHISTOCYTES FEW; TOTAL CELLS COUNTED 100
[2019-03-20 06:38] LABS: ELLIPTOCYTES FEW; POLYCHROMASIA FEW
[2019-03-20 06:39] LABS: BURR CELLS FEW
[2019-03-20 06:40] LABS: HYPOCHROMASIA 1+
[2019-03-20 06:41] LABS: NUCLEATED RED BLOOD CELLS 1 /100WBC (0-0)
[2019-03-20 07:00] VITALS: BP 171/58
[2019-03-20] MEDS: furosemide 20 MG/2 ML vial IV SCH (07:14)
[2019-03-20] MEDS: CefTRIAXone/D5W-Rocephin 1gm 50 ML IV SCH (07:16)
[2019-03-20] MEDS: methylPREDNISolone sod succ/PF 40mg inj. IV SCH (07:16)
[2019-03-20] MEDS: apixaban 5mg tablet PO SCH (07:19)
[2019-03-20] MEDS: lactobacillus rhamnosus 10,000 MMU CELLS/CAPSULE PO SCH (07:19)
[2019-03-20] MEDS: metoprolol succinate 25mg (24-HOUR) SR. Tablet PO SCH (07:20)
[2019-03-20] MEDS: levoTHYROXINE 75mcg tablet PO SCH (07:20)
[2019-03-20] MEDS ORDERED: losartan 50mg tablet PO SCH (08:00)
[2019-03-20] MEDS ORDERED: sertraline 25mg tablet PO SCH (08:00)
[2019-03-20] MEDS: insulin Lispro (HumaLOG) vial - multi-dose SQ SCH ×2 (08:41→12:54)
[2019-03-20] MEDS: NYSTATIN CREAM - 30GM TUBE TP SCH (08:42)
[2019-03-20 09:12] VITALS: BP 124/76
[2019-03-20 11:00] VITALS: BP 101/39
--- NOTE | 2019-03-20 12:48 | NUR ---
Gave pt report to Mana PYLE and Jazmín RN. Pt's scheduled picking table worker time is [id number].
--- NOTE | 2019-03-20 13:40 | NUR ---
Pt stable for transfer to [facility] [place] per MD order. IV discontinued with canula intact and tele monitor discontinued. Pt's family took pt belongings including pt's portable O2 concentrator. [facility] transported pt. Pt alert and oriented X 4 at discharge. Report called into [facility] [place] to Altagracia PYLE.
[2019-03-20] MEDS ORDERED: guaiFENesin 200 MG/10 ML oral syrup UD cup PO SCH (14:00)
[2019-03-20] MEDS ORDERED: docusate sod 100mg capsule PO SCH (20:00)
[2019-03-21] MEDS ORDERED: methylPREDNISolone sod succ/PF 40mg inj. IV SCH (08:00)
== END 2019-03-20 13:40 | DRG 291 ==
LOC: ER 09:17 → PCU 3S 14:32 → CMPBEDREQ 03-17 20:26
PROVIDERS: ADMIT Family Medicine; ATTEND Internal Medicine
DX: I13.0 Hypertensive heart and chronic kidney disease with heart failure and stage 1 through stage 4 chronic kidney disease, or unspecified chronic kidney disease (principal); I50.33 Acute on chronic diastolic (congestive) heart failure; J96.20 Acute and chronic respiratory failure, unspecified whether with hypoxia or hypercapnia; J44.1 Chronic obstructive pulmonary disease with (acute) exacerbation; N18.4 Chronic kidney disease, stage 4 (severe); J44.0 Chronic obstructive pulmonary disease with (acute) lower respiratory infection; J20.9 Acute bronchitis, unspecified; E11.22 Type 2 diabetes mellitus with diabetic chronic kidney disease; D64.9 Anemia, unspecified; G89.4 Chronic pain syndrome; I25.10 Atherosclerotic heart disease of native coronary artery without angina pectoris; I25.2 Old myocardial infarction; Z79.01 Long term (current) use of anticoagulants; Z85.038 Personal history of other malignant neoplasm of large intestine; Z95.1 Presence of aortocoronary bypass graft; Z90.49 Acquired absence of other specified parts of digestive tract; Z79.899 Other long term (current) drug therapy; Z79.4 Long term (current) use of insulin
CPT/HCPCS: 36415; 71045; 80048; 80053; 82948; 83036; 83880; 84443; 84484; 85025; 85610; 85730; 87081; 93005; 93306; 94640; 94667; 94668; 94760; 96374; 96375; 97116; 97161; 97530; 99285; G0378; J0696; J1644; J1815; J1940; J2920; J2930

== ENCOUNTER 2019-03-31 01:25 | Inpatient (IN) | payer MEDICARE, BC ==
[~2019-03-31] VITALS: Ht 157.5 cm; Wt 85.0 kg
[2019-03-31] VITALS (20 sets, daily range): BP systolic 103–175; BP diastolic 44–84
[~2019-03-31 01:25] MED LIST changes: +APIX5TAB3 PO; -IPRA3AMP31 IH; +LEVO75TA7 PO; -LEVO88TA7 PO; -LOPE2CAP PO; -METO-395 PO; +METO50TA7 PO; -PANT40TA4 PO; +POTA8CAP20 PO; -POTA8TAB3; +SERT25TA PO
[2019-03-31] MEDS ORDERED: normal saline 1000ML IV soln IVB ONE (03:15)
--- NOTE | 2019-03-31 03:36 | NUR ---
pericare provided before straight cath for ua. Addendum: 03/31/19 at 0355 by RSTEWART dark stool noted.
[2019-03-31 03:48] LABS: BASOPHILS # (AUTO) 0.1 X10'3 (0-0.2); BASOPHILS % (AUTO) 0.6 % (0-1); EOSINOPHILS # (AUTO) 0.1 X10'3 (0-0.9); EOSINOPHILS % (AUTO) 0.6 % (0-6); LYMPHOCYTES # (AUTO) 0.9 X10'3 (1.1-4.8); LYMPHOCYTES % (AUTO) 7.8 % (21-51); MEAN CORPUSCULAR HEMOGLOBIN 28.5 PG (27.0-31.0); MEAN CORPUSCULAR HGB CONC 32.7 g/dL (33.0-36.5); MEAN CORPUSCULAR VOLUME 87.1 FL (78-98); MEAN PLATELET VOLUME 11.1 FL (7.4-10.4); MONOCYTES # (AUTO) 0.7 X10'3 (0-0.9); NEUTROPHILS # (AUTO) 9.3 X10'3 (1.8-7.7); PLATELET COUNT 131 X10'3 (140-440); RED BLOOD COUNT 1.89 X10'6 (4.20-5.60); RED CELL DISTRIBUTION WIDTH 18.4 % (11.5-14.5); WHITE BLOOD COUNT 10.9 X10'3 (4.5-11.0)
[2019-03-31 03:51] LABS: CLARITY,URINE SLIGHTLY CLOUDY (Clear); COLOR,URINE YELLOW (Yellow); GLUCOSE, URINE NEGATIVE (Neg); KETONES,URINE NEGATIVE (Neg); LEUKOCYTE ESTERASE ,URINE NEGATIVE (Neg); NITRITES, URINE NEGATIVE (Neg); OCCULT BLOOD,URINE SMALL (Neg); PROTEIN,URINE 100 mg/dl (Neg); UROBILINOGEN,URINE 0.2 E.U/dL (0.2-1.0)
[2019-03-31 03:53] LABS: URINE AMPHETAMINE SCREEN NEGATIVE (Neg); URINE BARBITUATE SCREEN NEGATIVE (Neg); URINE BENZODIAZEPINES SCREEN NEGATIVE (Neg); URINE CANNABINOID SCREEN NEGATIVE (Neg); URINE COCAINE SCREEN NEGATIVE (Neg); URINE METHADONE SCREEN NEGATIVE (Neg); URINE OPIATE SCREEN NEGATIVE (Neg); URINE PHENCYCLIDINE SCREEN NEGATIVE (Neg)
[2019-03-31 03:54] LABS: HEMOGLOBIN 5.4 g/dl (12.0-16.0)
[2019-03-31 03:55] LABS: ALANINE AMINOTRANSFERASE 25 U/L (12-78); ALBUMIN 2.5 G/DL (3.4-5.0); ALBUMIN/GLOBULIN RATIO 0.9 (1.1-1.5); ALKALINE PHOSPHATASE 35 IU/L (46-116); ANION GAP 6 (8-16); ASPARTATE AMINO TRANSFERASE 18 U/L (10-37); BILIRUBIN,TOTAL 0.7 MG/DL (0.1-1.0); BLOOD UREA NITROGEN 79 MG/DL (7-18); CALCIUM 8.3 MG/DL (8.5-10.1); CHLORIDE 109 MMOL/L (99-107); CREATININE 2.08 MG/DL (0.40-0.90); ETHANOL < 0.010 GM/DL (0.0-0.010); GLUCOSE 169 MG/DL (70-104); HEMATOCRIT 16.4 % (35.0-45.0); MAGNESIUM 1.8 MG/DL (1.5-2.4); POTASSIUM 4.8 MMOL/L (3.5-5.1); SODIUM 142 MMOL/L (135-145); TOTAL PROTEIN 5.3 G/DL (6.4-8.2); eGFR 23 ML/MIN
[2019-03-31 04:01] LABS: UA COLLECTION TYPE STRAIGHT CATH
[2019-03-31 04:05] LABS: BACTERIA,URINE 3+ /HPF (Neg); HYALINE CASTS 0-3 /LPF (NEGATIVE); RBC,URINE 0-2 /HPF (0-2); SQUAMOUS EPITHELIAL CELL,UR FEW /LPF (FEW); WBC,URINE NONE SEEN /HPF (0-4)
[2019-03-31 04:36] LABS: LACTIC SEPSIS 0.5 MMOL/L (0.4-2.0)
[2019-03-31 04:45] LABS: LARGE PLATELETS FEW; PLATELET ESTIMATE DECREASED
[2019-03-31] MEDS ORDERED: tranexamic acid 100mg/ml inj. IV ONE (04:50)
[2019-03-31] MEDS ORDERED: pantoprazole 40 MG vial IV ONE (04:50)
[2019-03-31] MEDS ORDERED: famotidine/PF 10 mg/ml inj IV ONE (04:50)
[2019-03-31] MEDS ORDERED: morphine 4 MG/ML inj SYRINge IV ONE (04:55)
[2019-03-31] MEDS ORDERED: ondansetron/PF 4mg/2ml inj IV ONE ×2 (04:55→05:35)
[2019-03-31] MEDS ORDERED: ESOMEPRAZOLE 40 MG VIAL IV ONE (04:55)
[2019-03-31] MEDS ORDERED: RIVA20TA PO (05:01)
[2019-03-31] MEDS ORDERED: insulin regular, DKA only 100 UNIT in normal saline 100ml IV soln 99 ML IV SCH ×2 (05:27)
[2019-03-31] MEDS ORDERED: sodium bicarbonate (8.4%) inj. 50 MEQ in dextrose 5% water 500ml 250 ML IV PRN (05:27)
[2019-03-31] MEDS ORDERED: dextrose 5%-1/2 normal saline 1,000 ML IV SCH (05:27)
[2019-03-31] MEDS ORDERED: sodium bicarbonate (8.4%) inj. 100 MEQ in dextrose 5% water 500ml 500 ML IV PRN (05:27)
[2019-03-31] MEDS ORDERED: normal saline 1000ml 1,000 ML IV SCH ×2 (05:27→09:45)
[2019-03-31] MEDS: normal saline 1000ml 1,000 ML IV SCH (05:27)
[2019-03-31] MEDS ORDERED: potassium CL 20mEq in D5-1/2NS 1,000 ML IV PRN (05:27)
[2019-03-31] MEDS ORDERED: Neutra Phos packet PO PRN (05:30)
[2019-03-31] MEDS ORDERED: insulin regular, human vial - multi-dose IV PRN (05:30)
[2019-03-31] MEDS ORDERED: acetaminophen 325mg tablet PO PRN ×2 (05:30)
[2019-03-31] MEDS ORDERED: sodium phosphate inj. 15 MMOL in dextrose 5%-water 150 ML IV PRN (05:30)
[2019-03-31] MEDS ORDERED: mag hydrox/Alum hydrox/simeth 30ml oral suspension PO PRN (05:30)
[2019-03-31] MEDS ORDERED: HYDROcodone/acetaminophen 5mg/325mg tablet PO PRN (05:30)
[2019-03-31] MEDS ORDERED: HYDROcodone/acetaminophen 10/325mg tab PO PRN (05:30)
[2019-03-31] MEDS ORDERED: magnesium hydroxide 30ml (MOM) UD suspension PO PRN (05:30)
[2019-03-31] MEDS ORDERED: morphine 2 MG/ML inj. syringe IV PRN ×2 (05:30)
[2019-03-31] MEDS ORDERED: potassium Cl 20 mEq SR tablet PO PRN ×2 (05:30)
[2019-03-31] MEDS ORDERED: ondansetron/PF 4mg/2ml inj IV PRN (05:30)
[2019-03-31] MEDS ORDERED: sodium phosphate inj. 30 MMOL in dextrose 5%-water 250 ML IV PRN (05:30)
[2019-03-31] MEDS ORDERED: potassium CL 10mEq/100ml bag 100 ML IV PRN ×2 (05:30)
[2019-03-31] MEDS: K and/or MAG REPLACEMENT MC SCH (08:00)
[2019-03-31] MEDS: sertraline 25mg tablet PO SCH (08:00)
[2019-03-31] MEDS: metoprolol succinate 25mg (24-HOUR) SR. Tablet PO SCH (08:00)
[2019-03-31] MEDS: levoTHYROXINE 75mcg tablet PO SCH (08:00)
[2019-03-31] MEDS: losartan 50mg tablet PO SCH (08:00)
[2019-03-31] MEDS: linagliptin 5mg tablet PO SCH (08:00)
--- NOTE | 2019-03-31 09:51 | NUR ---
PAGER ID: [phone] MESSAGE: Najma Herrera [id number] BP BEFORE BLOOD ADMIN. 168/56. PT ALSO HAS A BG OF 239. D5/NS ORDERED BUT NOT RUNNING AT THIS TIME R/T BLOOD ADMIN. PT. NPO. DO WANT TO PUT IN INSULIN ORDERS/PROTOCOL? PREETI [id number]
--- NOTE | 2019-03-31 12:02 | NUR ---
PAGER ID: [phone] MESSAGE: [phone] Najma Herrera Pt. has CABG, DM, HTN, AFIB pmx. she normally takes a beta olinda and losartan but npo this am. BLE edema and shallow breaths with 02. BP 174/59. Are you sure you want NS @ 100? [id number] angi
[2019-03-31 13:28] LABS: ALBUMIN 2.6 G/DL (3.4-5.0); ANION GAP 9 (8-16); BLOOD UREA NITROGEN 81 MG/DL (7-18); BUN/CREATININE RATIO 38.8 (6.6-38.0); CALCIUM 8.5 MG/DL (8.5-10.1); CHLORIDE 108 MMOL/L (99-107); CREATININE 2.09 MG/DL (0.40-0.90); GLUCOSE 226 MG/DL (70-104); PHOSPHORUS 4.1 MG/DL (2.3-4.5); POTASSIUM 5.2 MMOL/L (3.5-5.1); SODIUM 142 MMOL/L (135-145); TOTAL CARBON DIOXIDE 24.8 MMOL/L (24-32); eGFR 23 ML/MIN
--- NOTE | 2019-03-31 13:46 | NUR ---
Large difference in blood pressure on R arm vs. L arm. During transfusion BP was first taken on RA and was 175/53. THen taken on LA and was 115/84. Will cont. to monitor on my shift. Unable to take BP on LA now r/t new extended IV placement.
[2019-03-31] MEDS ORDERED: MIDAZolam 5mg/5ml vial ONE (15:35)
[2019-03-31] MEDS ORDERED: fentaNYL/PF 50MCG/1 ML 2ML syringe ONE (15:35)
[2019-03-31] MEDS ORDERED: LIDOcaine Viscous 15ml cup ONE (15:36)
[2019-03-31] MEDS ORDERED: glucagon, human recombinant 1mg kit ONE (15:51)
--- NOTE | 2019-03-31 18:30 | NUR ---
Pt. back in room from GI. GI orders in chart. Pt. on CL. Kitchen faxed for tray. Pt. currently on post-op vitals and Benja PYLE aware. First set vitals taken stable. Pt. has gag reflex. Family at bedside. Gave report to Benja PYLE.
--- NOTE | 2019-03-31 18:41 | NUR ---
Unable to obtain orthostatic vitals r/t pt. arrive late on unit, other pt care, administering 2 units of blood, and pt. off unit in GI lab for EGD. Benja PYLE aware.
[2019-03-31 19:20] LABS: HEMATOCRIT 24.7 % (35.0-45.0); HEMOGLOBIN 8.1 g/dl (12.0-16.0); MEAN CORPUSCULAR HGB CONC 32.8 g/dL (33.0-36.5); MEAN CORPUSCULAR VOLUME 88.5 FL (78-98); MEAN PLATELET VOLUME 10.9 FL (7.4-10.4); PLATELET COUNT 124 X10'3 (140-440); RED BLOOD COUNT 2.79 X10'6 (4.20-5.60); RED CELL DISTRIBUTION WIDTH 17.2 % (11.5-14.5); WHITE BLOOD COUNT 18.9 X10'3 (4.5-11.0)
[2019-03-31] MEDS: atorvastatin 20mg tablet PO SCH (20:33)
[2019-04-01] VITALS: BP_SYST 164; BP_SYST 171; BP_DIAS 48; BP_DIAS 49
[2019-04-01 05:53] LABS: BASOPHILS # (AUTO) 0.1 X10'3 (0-0.2); BASOPHILS % (AUTO) 0.6 % (0-1); EOSINOPHILS # (AUTO) 0.1 X10'3 (0-0.9); EOSINOPHILS % (AUTO) 0.6 % (0-6); HEMATOCRIT 22.2 % (35.0-45.0); HEMOGLOBIN 7.5 g/dl (12.0-16.0); LYMPHOCYTES # (AUTO) 0.9 X10'3 (1.1-4.8); LYMPHOCYTES % (AUTO) 8.6 % (21-51); MEAN CORPUSCULAR HGB CONC 33.9 g/dL (33.0-36.5); MEAN CORPUSCULAR VOLUME 88.3 FL (78-98); MEAN PLATELET VOLUME 10.5 FL (7.4-10.4); MONOCYTES # (AUTO) 0.7 X10'3 (0-0.9); NEUTROPHILS # (AUTO) 8.9 X10'3 (1.8-7.7); NEUTROPHILS % (AUTO) 83.2 % (42-75); PLATELET COUNT 124 X10'3 (140-440); RED BLOOD COUNT 2.51 X10'6 (4.20-5.60); RED CELL DISTRIBUTION WIDTH 17.4 % (11.5-14.5); WHITE BLOOD COUNT 10.6 X10'3 (4.5-11.0)
[2019-04-01 05:59] LABS: ALBUMIN 2.6 G/DL (3.4-5.0); ANION GAP 8 (8-16); BLOOD UREA NITROGEN 72 MG/DL (7-18); CALCIUM 8.3 MG/DL (8.5-10.1); CHLORIDE 110 MMOL/L (99-107); GLUCOSE 155 MG/DL (70-104); PHOSPHORUS 3.7 MG/DL (2.3-4.5); POTASSIUM 4.4 MMOL/L (3.5-5.1); SODIUM 144 MMOL/L (135-145); TOTAL CARBON DIOXIDE 25.9 MMOL/L (24-32); eGFR 24 ML/MIN
--- NOTE | 2019-04-01 06:35 | NUR ---
Problems reprioritized. Patient report given, questions answered & plan of care reviewed with Jolene. Addendum: 04/01/19 at 0636 by Derek Del Toro RN Amended: Links added.
[2019-04-01 07:00] VITALS: BP 140/59
[2019-04-01] MEDS: K and/or MAG REPLACEMENT MC SCH (07:02)
[2019-04-01] MEDS: losartan 50mg tablet PO SCH (07:32)
[2019-04-01] MEDS: linagliptin 5mg tablet PO SCH (07:33)
[2019-04-01] MEDS: metoprolol succinate 25mg (24-HOUR) SR. Tablet PO SCH (07:33)
[2019-04-01] MEDS: levoTHYROXINE 75mcg tablet PO SCH (07:33)
[2019-04-01] MEDS: sertraline 25mg tablet PO SCH (07:34)
[2019-04-01 08:00] VITALS: BP_SYST 164; BP_SYST 167; BP_SYST 193; BP_DIAS 39; BP_DIAS 49; BP_DIAS 73
[2019-04-01] MEDS ORDERED: LACT1CAP65 PO (09:22)
--- NOTE | 2019-04-01 09:22 | NUR ---
DM consult: Patient's A1c is 6.2; DM ed not warranted at this time. Will continue to follow. Addendum: 04/01/19 at [address] Amended: Links added.
[2019-04-01] MEDS ORDERED: DOCU-20 PO (09:23)
[2019-04-01] MEDS ORDERED: DOCU-170 PO (09:24)
[2019-04-01 11:00] VITALS: BP 150/55
[2019-04-01] MEDS: nystatin 15 GM powder TP SCH ×2 (13:41→20:41)
--- NOTE | 2019-04-01 18:20 | NUR ---
Problems reprioritized. Patient report given, questions answered & plan of care reviewed with EDENILSON Solo.
--- NOTE | 2019-04-01 18:27 | NUR ---
Patient in room KELL 344. I have received report from Jolene PYLE and had the opportunity to ask questions and assume patient care.
[2019-04-01 19:00] VITALS: BP 142/45
[2019-04-01] MEDS ORDERED: pantoprazole 40 MG vial IV SCH (20:00)
[2019-04-01] MEDS: ESOMEPRAZOLE 40 MG VIAL IV SCH (20:40)
[2019-04-01] MEDS: atorvastatin 20mg tablet PO SCH (20:41)
[2019-04-02] VITALS: BP 179/44
--- NOTE | 2019-04-02 06:36 | NUR ---
Problems reprioritized. Patient report given, questions answered & plan of care reviewed with Cristian PYLE.
[2019-04-02 07:00] VITALS: BP 93/45
[2019-04-02 07:53] LABS: BASOPHILS # (AUTO) 0.1 X10'3 (0-0.2); BASOPHILS % (AUTO) 0.7 % (0-1); EOSINOPHILS # (AUTO) 0.1 X10'3 (0-0.9); EOSINOPHILS % (AUTO) 1.3 % (0-6); HEMATOCRIT 23.9 % (35.0-45.0); LYMPHOCYTES # (AUTO) 0.8 X10'3 (1.1-4.8); MEAN CORPUSCULAR HEMOGLOBIN 29.7 PG (27.0-31.0); MEAN CORPUSCULAR HGB CONC 33.3 g/dL (33.0-36.5); MEAN CORPUSCULAR VOLUME 89.1 FL (78-98); MEAN PLATELET VOLUME 10.8 FL (7.4-10.4); MONOCYTES # (AUTO) 0.6 X10'3 (0-0.9); MONOCYTES % (AUTO) 6.6 % (2-12); NEUTROPHILS # (AUTO) 7.7 X10'3 (1.8-7.7); NEUTROPHILS % (AUTO) 82.4 % (42-75); PLATELET COUNT 153 X10'3 (140-440); RED BLOOD COUNT 2.68 X10'6 (4.20-5.60); RED CELL DISTRIBUTION WIDTH 18.3 % (11.5-14.5); WHITE BLOOD COUNT 9.3 X10'3 (4.5-11.0)
[2019-04-02] MEDS: K and/or MAG REPLACEMENT MC SCH (08:00)
[2019-04-02] MEDS: nystatin 15 GM powder TP SCH ×2 (08:00→13:00)
[2019-04-02 08:08] LABS: ALBUMIN 2.6 G/DL (3.4-5.0); ANION GAP 7 (8-16); BLOOD UREA NITROGEN 59 MG/DL (7-18); BUN/CREATININE RATIO 31.2 (6.6-38.0); CALCIUM 8.3 MG/DL (8.5-10.1); CHLORIDE 109 MMOL/L (99-107); CREATININE 1.89 MG/DL (0.40-0.90); GLUCOSE 161 MG/DL (70-104); SODIUM 142 MMOL/L (135-145); TOTAL CARBON DIOXIDE 25.7 MMOL/L (24-32); eGFR 25 ML/MIN
[2019-04-02 09:00] VITALS: BP 152/67
[2019-04-02] MEDS: ESOMEPRAZOLE 40 MG VIAL IV SCH (09:18)
[2019-04-02] MEDS: losartan 50mg tablet PO SCH (09:22)
[2019-04-02] MEDS: levoTHYROXINE 75mcg tablet PO SCH (09:22)
[2019-04-02] MEDS: sertraline 25mg tablet PO SCH (09:23)
[2019-04-02] MEDS: linagliptin 5mg tablet PO SCH (09:23)
[2019-04-02] MEDS: metoprolol succinate 25mg (24-HOUR) SR. Tablet PO SCH (09:23)
[2019-04-02 10:47] LABS: ANISOCYTOSIS 2+; PLATELET ESTIMATE NORMAL
[2019-04-02 10:50] LABS: POLYCHROMASIA FEW
[2019-04-02 10:51] LABS: BURR CELLS FEW; ELLIPTOCYTES FEW; SCHISTOCYTES FEW
[2019-04-02 10:52] LABS: LARGE PLATELETS FEW
[2019-04-02 11:00] VITALS: BP 152/47
--- NOTE | 2019-04-02 17:00 | NUR ---
Patient taken to [facility] via Susanne [facility]argo. Patient alert and in no apparent distress at time of discharge. PIV removed with cannula intact. Patient did not have any belongings at time. Report called to Cristin at [facility]. Patient family at bedside during transfer to [facility].
== END 2019-04-02 16:45 | DRG 378 ==
LOC: ER 01:26 → SUR 3N 08:12 → CMPBEDREQ 19:45
PROVIDERS: ADMIT Internal Medicine; ATTEND Hospitalist
PROC: 30233N1 Transfusion of Nonautologous Red Blood Cells into Peripheral Vein, Percutaneous Approach (ICD-10-PCS; principal; 2019-03-31)
PROC: 0DJ08ZZ Inspection of Upper Intestinal Tract, Via Natural or Artificial Opening Endoscopic (ICD-10-PCS; 2019-03-31)
DX: K29.61 Other gastritis with bleeding (principal); D62 Acute posthemorrhagic anemia; I13.0 Hypertensive heart and chronic kidney disease with heart failure and stage 1 through stage 4 chronic kidney disease, or unspecified chronic kidney disease; E03.9 Hypothyroidism, unspecified; E11.22 Type 2 diabetes mellitus with diabetic chronic kidney disease; E78.5 Hyperlipidemia, unspecified; F32.9 Major depressive disorder, single episode, unspecified; I25.10 Atherosclerotic heart disease of native coronary artery without angina pectoris; I48.0 Paroxysmal atrial fibrillation; J44.9 Chronic obstructive pulmonary disease, unspecified; K44.9 Diaphragmatic hernia without obstruction or gangrene; G89.29 Other chronic pain; I50.9 Heart failure, unspecified; N18.3 Chronic kidney disease, stage 3 (moderate); M54.6 Pain in thoracic spine; Z66 Do not resuscitate; I25.2 Old myocardial infarction; Z79.01 Long term (current) use of anticoagulants; Z79.899 Other long term (current) drug therapy; Z83.3 Family history of diabetes mellitus; Z85.038 Personal history of other malignant neoplasm of large intestine; Z87.891 Personal history of nicotine dependence; Z95.1 Presence of aortocoronary bypass graft; Z95.5 Presence of coronary angioplasty implant and graft; Z79.4 Long term (current) use of insulin; Z95.0 Presence of cardiac pacemaker; Z90.49 Acquired absence of other specified parts of digestive tract; Z95.828 Presence of other vascular implants and grafts
CPT/HCPCS: 36415; 43235; 43239; 71045; 76937; 80048; 80053; 80305; 80320; 81001; 82140; 82948; 83036; 83605; 83735; 84100; 84439; 84443; 84484; 85025; 85027; 86885; 86900; 86901; 86920; 87040; 87081; 87088; 93005; 96374; 96375; 99152; 99285; A4620; G0378; J1610; J2250; J2270; J2405; J3010; J3490; J7030; J7040; P9016

== ENCOUNTER 2019-04-12 16:26 | Inpatient (IN) | payer MEDICARE, BC ==
[~2019-04-12] VITALS: Ht 157.5 cm; Wt 79.5 kg
[~2019-04-12 16:26] MED LIST changes: -APIX5TAB3 PO; +DOCU-170 PO; +DOCU-20 PO; +LACT1CAP65 PO; -POTA8CAP20 PO; +RIVA20TA PO
[2019-04-12 17:06] LABS: BASOPHILS % (AUTO) 0.7 % (0-1); EOSINOPHILS # (AUTO) 0.2 X10'3 (0-0.9); EOSINOPHILS % (AUTO) 3.5 % (0-6); LYMPHOCYTES % (AUTO) 21.2 % (21-51); MEAN CORPUSCULAR HEMOGLOBIN 28.8 PG (27.0-31.0); MEAN CORPUSCULAR HGB CONC 31.9 g/dL (33.0-36.5); MEAN CORPUSCULAR VOLUME 90.3 FL (78-98); MEAN PLATELET VOLUME 9.7 FL (7.4-10.4); MONOCYTES # (AUTO) 0.6 X10'3 (0-0.9); NEUTROPHILS # (AUTO) 2.8 X10'3 (1.8-7.7); NEUTROPHILS % (AUTO) 61.6 % (42-75); PLATELET COUNT 201 X10'3 (140-440); RED BLOOD COUNT 2.16 X10'6 (4.20-5.60); RED CELL DISTRIBUTION WIDTH 18.2 % (11.5-14.5); WHITE BLOOD COUNT 4.5 X10'3 (4.5-11.0)
[2019-04-12 17:09] LABS: HEMATOCRIT 19.5 % (35.0-45.0); HEMOGLOBIN 6.2 g/dl (12.0-16.0)
[2019-04-12 17:18] LABS: ALANINE AMINOTRANSFERASE 17 U/L (12-78); ALBUMIN 2.8 G/DL (3.4-5.0); ALBUMIN/GLOBULIN RATIO 0.9 (1.1-1.5); ALKALINE PHOSPHATASE 50 IU/L (46-116); ANION GAP 8 (8-16); ASPARTATE AMINO TRANSFERASE 12 U/L (10-37); BILIRUBIN,TOTAL 0.7 MG/DL (0.1-1.0); BLOOD UREA NITROGEN 39 MG/DL (7-18); BUN/CREATININE RATIO 17.7 (6.6-38.0); CALCIUM 8.3 MG/DL (8.5-10.1); CHLORIDE 105 MMOL/L (99-107); GLUCOSE 145 MG/DL (70-104); POTASSIUM 4.3 MMOL/L (3.5-5.1); SODIUM 140 MMOL/L (135-145); TOTAL CARBON DIOXIDE 26.8 MMOL/L (24-32); TOTAL PROTEIN 5.8 G/DL (6.4-8.2); eGFR 21 ML/MIN
[2019-04-12 18:24] VITALS: BP 120/49
[2019-04-12 19:17] VITALS: BP 132/59
[2019-04-12] MEDS ORDERED: PANT-47 PO (19:31)
[2019-04-12] MEDS ORDERED: pantoprazole 40 MG vial IV ONE (19:40)
[2019-04-12] MEDS ORDERED: mag hydrox/Alum hydrox/simeth 30ml oral suspension PO PRN (19:45)
[2019-04-12] MEDS ORDERED: ondansetron/PF 4mg/2ml inj IV PRN (19:45)
[2019-04-12] MEDS ORDERED: acetaminophen 325mg tablet PO PRN ×2 (19:45)
[2019-04-12] MEDS ORDERED: magnesium 4gm in 100ml NS 100 ML IV PRN (19:45)
[2019-04-12] MEDS ORDERED: potassium CL 10mEq/100ml bag 100 ML IV PRN ×2 (19:45)
[2019-04-12] MEDS ORDERED: magnesium hydroxide 30ml (MOM) UD suspension PO PRN (19:45)
[2019-04-12] MEDS ORDERED: magnesium 2GM in 50ml NS 50 ML IV PRN (19:45)
[2019-04-12] MEDS ORDERED: magnesium Cl slow-release 64mg tablet PO PRN (19:45)
[2019-04-12] MEDS ORDERED: potassium Cl 20 mEq SR tablet PO PRN ×2 (19:45)
--- NOTE | 2019-04-12 21:05 | NUR ---
Received report from Mary PYLE in ED. Given time and opportunity to ask questions. Will assume care when patient arrives to floor.
[2019-04-12] MEDS ORDERED: dextrose 50%-water 50ml dispensing syringe IV PRN ×2 (21:20)
[2019-04-12] MEDS ORDERED: glucagon, human recombinant 1mg kit SUBCUT PRN (21:20)
[2019-04-12] MEDS ORDERED: insulin Lispro (HumaLOG) vial - multi-dose SQ SCH (21:20)
[2019-04-12] MEDS ORDERED: dextrose ORAL solution 15 GM/59 ML bottle PO PRN ×2 (21:20)
[2019-04-12] MEDS ORDERED: MESSAGE TO PHARMACY PO ONE (21:20)
[2019-04-12 21:30] VITALS: BP 149/66
[2019-04-12 22:59] LABS: HEMATOCRIT 23.7 % (35.0-45.0); HEMOGLOBIN 7.6 g/dl (12.0-16.0); MEAN CORPUSCULAR HEMOGLOBIN 28.8 PG (27.0-31.0); MEAN CORPUSCULAR HGB CONC 31.9 g/dL (33.0-36.5); MEAN CORPUSCULAR VOLUME 90.1 FL (78-98); MEAN PLATELET VOLUME 9.7 FL (7.4-10.4); PLATELET COUNT 189 X10'3 (140-440); RED BLOOD COUNT 2.63 X10'6 (4.20-5.60); RED CELL DISTRIBUTION WIDTH 17.1 % (11.5-14.5); WHITE BLOOD COUNT 4.6 X10'3 (4.5-11.0)
[2019-04-13] VITALS: BP 127/69
[2019-04-13 06:08] LABS: BASOPHILS % (AUTO) 0.8 % (0-1); EOSINOPHILS # (AUTO) 0.1 X10'3 (0-0.9); EOSINOPHILS % (AUTO) 3.3 % (0-6); HEMATOCRIT 24.9 % (35.0-45.0); LYMPHOCYTES # (AUTO) 0.7 X10'3 (1.1-4.8); MEAN CORPUSCULAR HEMOGLOBIN 28.9 PG (27.0-31.0); MEAN CORPUSCULAR HGB CONC 32.3 g/dL (33.0-36.5); MEAN CORPUSCULAR VOLUME 89.6 FL (78-98); MEAN PLATELET VOLUME 9.6 FL (7.4-10.4); MONOCYTES # (AUTO) 0.5 X10'3 (0-0.9); MONOCYTES % (AUTO) 11.4 % (2-12); NEUTROPHILS # (AUTO) 2.9 X10'3 (1.8-7.7); NEUTROPHILS % (AUTO) 68.5 % (42-75); PLATELET COUNT 198 X10'3 (140-440); RED BLOOD COUNT 2.78 X10'6 (4.20-5.60); RED CELL DISTRIBUTION WIDTH 17.3 % (11.5-14.5); WHITE BLOOD COUNT 4.2 X10'3 (4.5-11.0)
--- NOTE | 2019-04-13 06:08 | NUR ---
Problems reprioritized. Patient report given, questions answered & plan of care reviewed with Mary PYLE.
--- NOTE | 2019-04-13 06:23 | NUR ---
Patient in room KELL 359. I have received report from Clarence PYLE and had the opportunity to ask questions and assume patient care.
[2019-04-13 06:24] LABS: ALBUMIN 2.7 G/DL (3.4-5.0); ANION GAP 8 (8-16); BLOOD UREA NITROGEN 38 MG/DL (7-18); BUN/CREATININE RATIO 19.1 (6.6-38.0); CALCIUM 8.6 MG/DL (8.5-10.1); CHLORIDE 107 MMOL/L (99-107); CREATININE 1.99 MG/DL (0.40-0.90); GLUCOSE 128 MG/DL (70-104); MAGNESIUM 1.6 MG/DL (1.5-2.4); POTASSIUM 4.2 MMOL/L (3.5-5.1); SODIUM 143 MMOL/L (135-145); TOTAL CARBON DIOXIDE 28.1 MMOL/L (24-32); eGFR 24 ML/MIN
[2019-04-13 06:30] LABS: OCCULT BLOOD STOOL POSITIVE (Neg)
[2019-04-13] MEDS: pantoprazole 40 MG vial IV SCH ×2 (07:11→19:54)
[2019-04-13] MEDS: lactobacillus rhamnosus 10,000 MMU CELLS/CAPSULE PO SCH ×2 (07:12→19:54)
[2019-04-13] MEDS: levoTHYROXINE 75mcg tablet PO SCH (07:12)
[2019-04-13] MEDS: sertraline 25mg tablet PO SCH (07:12)
[2019-04-13] MEDS: metoprolol succinate 25mg (24-HOUR) SR. Tablet PO SCH (07:13)
[2019-04-13] MEDS: furosemide 40mg tablet PO SCH (07:13)
[2019-04-13 07:27] VITALS: BP 112/56
[2019-04-13] MEDS: K and/or MAG REPLACEMENT MC SCH (08:00)
[2019-04-13 11:36] VITALS: BP 150/46
--- NOTE | 2019-04-13 12:42 | NUR ---
DM Consult: Pt A1C <7 and not appropriate for DM ed at this time. Addendum: 04/13/19 at [address] Amended: Links added.
[2019-04-13] MEDS ORDERED: PANT40TA4 PO (13:26)
--- NOTE | 2019-04-13 13:48 | NUR ---
[facility]
--- NOTE | 2019-04-13 16:00 | NUR ---
Spoke with Jacqui from [facility], gave an update on patient. Patient will be sent back to [facility] tomorrow and set up by SUZY.
[2019-04-13 18:00] VITALS: BP 135/80
--- NOTE | 2019-04-13 18:22 | NUR ---
Problems reprioritized. Patient report given, questions answered & plan of care reviewed with Amy PYLE.
--- NOTE | 2019-04-13 18:27 | NUR ---
Received report from EDENILSON Hernandez. Patient is awake and alert on 2L NC, in no apparent distress. Having dinner. Call light and items of frequent use within reach. Will continue to monitor.
[2019-04-13] MEDS ORDERED: atorvastatin 20mg tablet PO SCH (21:00)
[2019-04-13] MEDS ORDERED: insulin glargine (Lantus) pen - multi-dose SQ SCH (21:00)
[2019-04-14] VITALS: BP 120/80
[2019-04-14 06:05] LABS: BASOPHILS % (AUTO) 0.6 % (0-1); EOSINOPHILS # (AUTO) 0.2 X10'3 (0-0.9); EOSINOPHILS % (AUTO) 4.6 % (0-6); HEMATOCRIT 24.6 % (35.0-45.0); HEMOGLOBIN 7.9 g/dl (12.0-16.0); LYMPHOCYTES # (AUTO) 0.7 X10'3 (1.1-4.8); LYMPHOCYTES % (AUTO) 17.8 % (21-51); MEAN CORPUSCULAR HEMOGLOBIN 28.6 PG (27.0-31.0); MEAN CORPUSCULAR HGB CONC 31.9 g/dL (33.0-36.5); MEAN CORPUSCULAR VOLUME 89.8 FL (78-98); MEAN PLATELET VOLUME 9.7 FL (7.4-10.4); MONOCYTES # (AUTO) 0.6 X10'3 (0-0.9); MONOCYTES % (AUTO) 14.5 % (2-12); NEUTROPHILS # (AUTO) 2.5 X10'3 (1.8-7.7); NEUTROPHILS % (AUTO) 62.5 % (42-75); PLATELET COUNT 203 X10'3 (140-440); RED BLOOD COUNT 2.74 X10'6 (4.20-5.60); RED CELL DISTRIBUTION WIDTH 17.4 % (11.5-14.5)
--- NOTE | 2019-04-14 06:10 | NUR ---
Problems reprioritized. Patient report given, questions answered & plan of care reviewed with EDENILSON Hernandez.
[2019-04-14 06:14] LABS: ALBUMIN 2.6 G/DL (3.4-5.0); ANION GAP 8 (8-16); BLOOD UREA NITROGEN 37 MG/DL (7-18); BUN/CREATININE RATIO 18.8 (6.6-38.0); CALCIUM 8.8 MG/DL (8.5-10.1); CHLORIDE 107 MMOL/L (99-107); CREATININE 1.97 MG/DL (0.40-0.90); GLUCOSE 128 MG/DL (70-104); MAGNESIUM 1.4 MG/DL (1.5-2.4); POTASSIUM 4.2 MMOL/L (3.5-5.1); SODIUM 144 MMOL/L (135-145); TOTAL CARBON DIOXIDE 29.5 MMOL/L (24-32); eGFR 24 ML/MIN
--- NOTE | 2019-04-14 06:15 | NUR ---
Patient in room KELL 359. I have received report from Amy PYLE and had the opportunity to ask questions and assume patient care.
[2019-04-14] MEDS: K and/or MAG REPLACEMENT MC SCH (07:02)
[2019-04-14 07:13] VITALS: BP 157/63
[2019-04-14] MEDS: pantoprazole 40 MG vial IV SCH (07:45)
[2019-04-14] MEDS: metoprolol succinate 25mg (24-HOUR) SR. Tablet PO SCH (07:45)
[2019-04-14] MEDS: furosemide 40mg tablet PO SCH (07:45)
[2019-04-14] MEDS: levoTHYROXINE 75mcg tablet PO SCH (07:45)
[2019-04-14] MEDS: sertraline 25mg tablet PO SCH (07:45)
[2019-04-14] MEDS: lactobacillus rhamnosus 10,000 MMU CELLS/CAPSULE PO SCH (07:45)
[2019-04-14 11:20] VITALS: BP 144/55
== END 2019-04-14 11:33 | DRG 812 ==
LOC: ER 16:27 → SUR 3N 21:34
PROVIDERS: ADMIT Hospitalist; ATTEND Family Medicine
PROC: 30233N1 Transfusion of Nonautologous Red Blood Cells into Peripheral Vein, Percutaneous Approach (ICD-10-PCS; principal; 2019-04-12)
DX: D62 Acute posthemorrhagic anemia (principal); K92.2 Gastrointestinal hemorrhage, unspecified; E11.9 Type 2 diabetes mellitus without complications; I10 Essential (primary) hypertension; I25.10 Atherosclerotic heart disease of native coronary artery without angina pectoris; I48.91 Unspecified atrial fibrillation; D63.8 Anemia in other chronic diseases classified elsewhere; J44.9 Chronic obstructive pulmonary disease, unspecified; G89.29 Other chronic pain; I05.2 Rheumatic mitral stenosis with insufficiency; Z66 Do not resuscitate; I25.2 Old myocardial infarction; Z85.038 Personal history of other malignant neoplasm of large intestine; Z87.891 Personal history of nicotine dependence; Z95.0 Presence of cardiac pacemaker; Z95.1 Presence of aortocoronary bypass graft; Z90.49 Acquired absence of other specified parts of digestive tract; Z79.899 Other long term (current) drug therapy
CPT/HCPCS: 36415; 80048; 80053; 82272; 82948; 83735; 85025; 85027; 86885; 86900; 86901; 86920; 87081; 94760; 96374; 97116; 97161; 97530; 99285; C9113; G0378; J1815; P9016

== ENCOUNTER 2019-06-27 23:01 | Inpatient (IN) | payer MEDICARE, BC ==
[~2019-06-27] VITALS: Ht 154.9 cm; Wt 74.0 kg
[~2019-06-27 23:01] MED LIST changes: -DOCU-170 PO; -DOCU-20 PO; -LINA5TAB4 PO; -LOSA100T57 PO; +PANT40TA4 PO; -RIVA20TA PO
[2019-06-27] MEDS ORDERED: ipratropium/albuterol 3ml nebule NEB ONE (23:25)
[2019-06-27] MEDS ORDERED: magnesium 2GM in 50ml NS 50 ML IV ONE (23:25)
[2019-06-27] MEDS ORDERED: methylPREDNISolone sod succ 125mg/2ml vial IV ONE (23:25)
[2019-06-27] MEDS ORDERED: nitroGLYCERIN 0.4mg/hour patch TD ONE (23:30)
[2019-06-27] MEDS ORDERED: furosemide 10 MG/1 ML 10ml inj IV ONE (23:30)
[2019-06-28 00:09] LABS: ALANINE AMINOTRANSFERASE 41 U/L (12-78); ALBUMIN 3.3 G/DL (3.4-5.0); ALBUMIN/GLOBULIN RATIO 0.8 (1.1-1.5); ALKALINE PHOSPHATASE 112 IU/L (46-116); ANION GAP 10 (8-16); ASPARTATE AMINO TRANSFERASE 26 U/L (10-37); BILIRUBIN,TOTAL 0.6 MG/DL (0.1-1.0); BLOOD UREA NITROGEN 48 MG/DL (7-18); BUN/CREATININE RATIO 17.3 (6.6-38.0); CALCIUM 8.9 MG/DL (8.5-10.1); CHLORIDE 99 MMOL/L (99-107); CREATININE 2.78 MG/DL (0.40-0.90); GLUCOSE 162 MG/DL (70-104); POTASSIUM 4.6 MMOL/L (3.5-5.1); SODIUM 136 MMOL/L (135-145); TOTAL CARBON DIOXIDE 26.8 MMOL/L (24-32); TOTAL PROTEIN 7.5 G/DL (6.4-8.2); eGFR 16 ML/MIN
[2019-06-28 00:33] LABS: BASOPHILS # (AUTO) 0.1 X10'3 (0-0.2); BASOPHILS % (AUTO) 0.7 % (0-1); EOSINOPHILS # (AUTO) 0.1 X10'3 (0-0.9); EOSINOPHILS % (AUTO) 0.7 % (0-6); HEMATOCRIT 33.2 % (35.0-45.0); HEMOGLOBIN 10.5 g/dl (12.0-16.0); LYMPHOCYTES # (AUTO) 1.5 X10'3 (1.1-4.8); LYMPHOCYTES % (AUTO) 16.9 % (21-51); MEAN CORPUSCULAR HEMOGLOBIN 25.1 PG (27.0-31.0); MEAN CORPUSCULAR HGB CONC 31.6 g/dL (33.0-36.5); MEAN CORPUSCULAR VOLUME 79.6 FL (78-98); MEAN PLATELET VOLUME 9.7 FL (7.4-10.4); MONOCYTES # (AUTO) 0.7 X10'3 (0-0.9); MONOCYTES % (AUTO) 7.2 % (2-12); NEUTROPHILS # (AUTO) 6.8 X10'3 (1.8-7.7); NEUTROPHILS % (AUTO) 74.5 % (42-75); PLATELET COUNT 249 X10'3 (140-440); RED BLOOD COUNT 4.17 X10'6 (4.20-5.60); RED CELL DISTRIBUTION WIDTH 16.6 % (11.5-14.5); WHITE BLOOD COUNT 9.1 X10'3 (4.5-11.0)
[2019-06-28 01:11] LABS: ABG HCO3 22.5 mmol/L (22.0-26.0); ABG OXYGEN SATURATION 95.4 % (95-98); ABG PCO2 (T) 41.5 mmHg (35.0-45.0); ABG PH (T) 7.351 (7.350-7.450); ABG PO2 (T) 81.3 mmHg (83-108); ALLEN'S TEST Positive; FCOHb 0.4 % (0.5-1.5); FLOW 4 L/min; FMetHb 0.2 % (0.3-1.12); FO2Hb 94.8 % (94-100); PATIENT TEMPERATURE 36.6; RESPIRATORY RATE (OBSERVED) 16 b/min; TOTAL HEMOGLOBIN 10.7 G/dl (12.0-16.0)
[2019-06-28] MEDS ORDERED: magnesium 4gm in 100ml NS 100 ML IV PRN (01:35)
[2019-06-28] MEDS ORDERED: acetaminophen 325mg tablet PO PRN (01:35)
[2019-06-28] MEDS ORDERED: potassium CL 10mEq/100ml bag 100 ML IV PRN ×2 (01:35)
[2019-06-28] MEDS ORDERED: potassium Cl 20 mEq SR tablet PO PRN ×2 (01:35)
[2019-06-28] MEDS ORDERED: magnesium 2GM in 50ml NS 50 ML IV PRN (01:35)
[2019-06-28] MEDS ORDERED: ondansetron/PF 4mg/2ml inj IV PRN (01:35)
[2019-06-28] MEDS ORDERED: ipratropium/albuterol 3ml nebule NEB PRN ×2 (01:35)
[2019-06-28] MEDS ORDERED: magnesium Cl slow-release 64mg tablet PO PRN (01:35)
[2019-06-28] MEDS ORDERED: LOSA25TA96 PO (02:21)
[2019-06-28] MEDS ORDERED: POTA10TA10 PO (02:21)
[2019-06-28] MEDS ORDERED: FERR134T2 PO (02:21)
[2019-06-28] MEDS ORDERED: ASPI-1265 PO (02:21)
[2019-06-28] MEDS ORDERED: LINA5TAB4 PO (02:21)
[2019-06-28] MEDS ORDERED: CALC0.2536 PO (02:21)
--- NOTE | 2019-06-28 05:00 | NUR ---
Patient in room PCU 3028. I have received report from Mary PYLE and had the opportunity to ask questions and assume patient care.
--- NOTE | 2019-06-28 05:30 | NUR ---
Pt. arrived via gurney in no distress fr/ED accompanied by daughter. Assisted to bed w/o incident.
--- NOTE | 2019-06-28 05:45 | NUR ---
Auscultated lung rose, noted crackles to L base, R lung clear.
[2019-06-28 06:00] VITALS: BP 148/64
--- NOTE | 2019-06-28 06:30 | NUR ---
Telemetry placed. Daughter at bedside stating pt. is very TORRES MARTINEZ. MRSA swab obtained. Pt resting, no complaints.
--- NOTE | 2019-06-28 06:32 | NUR ---
Problems reprioritized. Patient report given, questions answered & plan of care reviewed with Imani PYLE.
[2019-06-28] MEDS: methylPREDNISolone sod succ/PF 40mg inj. IV SCH ×2 (07:49→21:47)
[2019-06-28] MEDS: pantoprazole 40mg Tablet.DR PO SCH (07:49)
[2019-06-28] MEDS: furosemide 40mg/4ml inj IV SCH (07:49)
[2019-06-28 08:00] LABS: BASOPHILS % (AUTO) 0.4 % (0-1); EOSINOPHILS % (AUTO) 0.1 % (0-6); HEMATOCRIT 31.4 % (35.0-45.0); LYMPHOCYTES # (AUTO) 0.3 X10'3 (1.1-4.8); LYMPHOCYTES % (AUTO) 6.7 % (21-51); MEAN CORPUSCULAR HEMOGLOBIN 25.2 PG (27.0-31.0); MEAN CORPUSCULAR HGB CONC 31.8 g/dL (33.0-36.5); MEAN CORPUSCULAR VOLUME 79.3 FL (78-98); MEAN PLATELET VOLUME 9.1 FL (7.4-10.4); MONOCYTES # (AUTO) 0.1 X10'3 (0-0.9); MONOCYTES % (AUTO) 1.5 % (2-12); NEUTROPHILS # (AUTO) 3.9 X10'3 (1.8-7.7); NEUTROPHILS % (AUTO) 91.3 % (42-75); PLATELET COUNT 236 X10'3 (140-440); RED BLOOD COUNT 3.96 X10'6 (4.20-5.60); RED CELL DISTRIBUTION WIDTH 16.8 % (11.5-14.5); WHITE BLOOD COUNT 4.2 X10'3 (4.5-11.0)
[2019-06-28] MEDS ORDERED: levoFLOXACIN-Levaquin 500mg/D5 100 ML IV SCH (08:00)
[2019-06-28] MEDS ORDERED: K and/or MAG REPLACEMENT MC SCH (08:00)
[2019-06-28 08:06] LABS: ANION GAP 8 (8-16); BLOOD UREA NITROGEN 48 MG/DL (7-18); BUN/CREATININE RATIO 17.8 (6.6-38.0); CALCIUM 8.8 MG/DL (8.5-10.1); CHLORIDE 101 MMOL/L (99-107); GLUCOSE 197 MG/DL (70-104); POTASSIUM 4.9 MMOL/L (3.5-5.1); SODIUM 136 MMOL/L (135-145); TOTAL CARBON DIOXIDE 26.7 MMOL/L (24-32); eGFR 17 ML/MIN
[2019-06-28 11:00] VITALS: BP 151/78
--- NOTE | 2019-06-28 12:13 | NUR ---
PAGER ID: [phone] MESSAGE: [id number] Najma Herrera: Pt is DMII can i start her on hyperglycemia protocol? Thanks Imani [phone]
--- NOTE | 2019-06-28 12:13 | NUR ---
Received orders to start pt on hyperglycemia protocol d/t DMII per dr. hardy
[2019-06-28] MEDS ORDERED: glucagon, human recombinant 1mg kit SUBCUT PRN (12:15)
[2019-06-28] MEDS ORDERED: dextrose 50%-water 50ml dispensing syringe IV PRN ×2 (12:15)
[2019-06-28] MEDS ORDERED: dextrose ORAL solution 15 GM/59 ML bottle PO PRN ×2 (12:15)
[2019-06-28] MEDS ORDERED: MESSAGE TO PHARMACY PO ONE (12:15)
[2019-06-28] MEDS: insulin Lispro (HumaLOG) vial - multi-dose SQ SCH (13:32)
[2019-06-28 15:00] VITALS: BP 126/60
[2019-06-28] MEDS ORDERED: FLU VACC QS 2019-20 (6 MOS UP) 60 MCG/0.5 ML VIAL IMVAC ONE (15:00)
[2019-06-28 18:00] VITALS: BP 144/64
--- NOTE | 2019-06-28 18:35 | NUR ---
Problems reprioritized. Patient report given, questions answered & plan of care reviewed with Cassia PYLE.
--- NOTE | 2019-06-28 18:39 | NUR ---
Patient in room PCU 3028. I have received report from Imani PYLE and had the opportunity to ask questions and assume patient care.
[2019-06-28] MEDS ORDERED: insulin glargine (Lantus) pen - multi-dose SQ SCH (21:00)
[2019-06-28 22:00] VITALS: BP 145/70
[2019-06-29 02:00] VITALS: BP 149/74
[2019-06-29 06:00] VITALS: BP 148/76
--- NOTE | 2019-06-29 06:38 | NUR ---
Problems reprioritized. Patient report given, questions answered & plan of care reviewed with Siobhan PYLE.
--- NOTE | 2019-06-29 06:41 | NUR ---
Patient in room PCU 3028. I have received report from Emelyn PYLE and had the opportunity to ask questions and assume patient care.
[2019-06-29 07:03] LABS: BASOPHILS % (AUTO) 0.2 % (0-1); EOSINOPHILS % (AUTO) 0 % (0-6); HEMATOCRIT 27.6 % (35.0-45.0); HEMOGLOBIN 8.8 g/dl (12.0-16.0); LYMPHOCYTES # (AUTO) 0.3 X10'3 (1.1-4.8); LYMPHOCYTES % (AUTO) 6.7 % (21-51); MEAN CORPUSCULAR HEMOGLOBIN 25.2 PG (27.0-31.0); MEAN CORPUSCULAR HGB CONC 31.9 g/dL (33.0-36.5); MEAN CORPUSCULAR VOLUME 79.1 FL (78-98); MEAN PLATELET VOLUME 9.3 FL (7.4-10.4); MONOCYTES # (AUTO) 0.2 X10'3 (0-0.9); MONOCYTES % (AUTO) 4.7 % (2-12); NEUTROPHILS # (AUTO) 4.6 X10'3 (1.8-7.7); NEUTROPHILS % (AUTO) 88.4 % (42-75); PLATELET COUNT 179 X10'3 (140-440); RED BLOOD COUNT 3.49 X10'6 (4.20-5.60); RED CELL DISTRIBUTION WIDTH 16.7 % (11.5-14.5); WHITE BLOOD COUNT 5.2 X10'3 (4.5-11.0)
[2019-06-29 07:06] LABS: ALBUMIN 2.9 G/DL (3.4-5.0); ANION GAP 7 (8-16); BLOOD UREA NITROGEN 54 MG/DL (7-18); BUN/CREATININE RATIO 20.7 (6.6-38.0); CHLORIDE 102 MMOL/L (99-107); CREATININE 2.61 MG/DL (0.40-0.90); GLUCOSE 187 MG/DL (70-104); MAGNESIUM 1.9 MG/DL (1.5-2.4); POTASSIUM 4.8 MMOL/L (3.5-5.1); SODIUM 138 MMOL/L (135-145); TOTAL CARBON DIOXIDE 28.9 MMOL/L (24-32); eGFR 18 ML/MIN
[2019-06-29] MEDS ORDERED: levoFLOXACIN-Levaquin 250mg/D5 50 ML IV SCH (08:00)
[2019-06-29] MEDS: insulin Lispro (HumaLOG) vial - multi-dose SQ SCH ×2 (08:19→13:02)
[2019-06-29] MEDS: pantoprazole 40mg Tablet.DR PO SCH (08:21)
[2019-06-29] MEDS: methylPREDNISolone sod succ/PF 40mg inj. IV SCH (08:21)
[2019-06-29] MEDS: furosemide 40mg/4ml inj IV SCH (08:21)
[2019-06-29] MEDS ORDERED: FERR134T2 PO (10:13)
[2019-06-29 11:00] VITALS: BP 152/72
--- NOTE | 2019-06-29 11:35 | NUR ---
Malnutrition consult: Patient's weight fairly stable with documented wt hx. Per records patient's wt range is 79-81 kg over the last year; pt with scaled wt of 81.7 kg July 2018, current scaled wt is 74 kg. This is non-significant wt loss of 9% in 11 months. Pt on heart healthy CHO controlled diet documented with average 75% PO intake meeting nutrient needs. Pt well developed and poor historian per H&P, with no significant decrease in muscle strength and BLE 2+ mild edema. Pt currently lacks a minimum of two criteria for malnutrition. Will continue to follow. Addendum: 06/29/19 at [address] Amended: Links added.
--- NOTE | 2019-06-29 13:24 | NUR ---
Patient stable for discharge per MD orders. All discharge instructions reviewed with patient and daughter, all questions answered. No new prescriptions were ordered. PIV & surveillance monitor discontinued. Belongings collected and sent with patient. Patient left in private vehicle with daughter. Patient wheeled down to lobby by RN.
== END 2019-06-29 13:24 | disposition home or self-care (01) | DRG 291 ==
LOC: ER 23:02 → ED HOLD 06-28 01:33 → PCU 3S 06-28 05:00
PROVIDERS: ADMIT Internal Medicine; ATTEND Internal Medicine
DX: I13.0 Hypertensive heart and chronic kidney disease with heart failure and stage 1 through stage 4 chronic kidney disease, or unspecified chronic kidney disease (principal); I50.23 Acute on chronic systolic (congestive) heart failure; J44.1 Chronic obstructive pulmonary disease with (acute) exacerbation; J96.10 Chronic respiratory failure, unspecified whether with hypoxia or hypercapnia; N17.9 Acute kidney failure, unspecified; N18.4 Chronic kidney disease, stage 4 (severe); D63.8 Anemia in other chronic diseases classified elsewhere; E03.9 Hypothyroidism, unspecified; G89.29 Other chronic pain; E11.22 Type 2 diabetes mellitus with diabetic chronic kidney disease; I50.9 Heart failure, unspecified; E78.5 Hyperlipidemia, unspecified; F17.210 Nicotine dependence, cigarettes, uncomplicated; Z66 Do not resuscitate; I05.0 Rheumatic mitral stenosis; K21.9 Gastro-esophageal reflux disease without esophagitis; I25.10 Atherosclerotic heart disease of native coronary artery without angina pectoris; I25.2 Old myocardial infarction; Z79.4 Long term (current) use of insulin; Z85.038 Personal history of other malignant neoplasm of large intestine; Z90.49 Acquired absence of other specified parts of digestive tract; Z95.0 Presence of cardiac pacemaker; Z95.1 Presence of aortocoronary bypass graft; Z99.81 Dependence on supplemental oxygen; Z23 Encounter for immunization
CPT/HCPCS: 36415; 36600; 71045; 80048; 80053; 82803; 82948; 83605; 83735; 83880; 84145; 84484; 85018; 85025; 87040; 87070; 87081; 93005; 93308; 94640; 94760; 96365; 96375; 97116; 97161; 97530; 97535; 99285; G0378; J1815; J1940; J1956; J2920; J2930; J3475; Q2037

== ENCOUNTER 2019-07-08 10:56 | Inpatient (IN) | payer MEDICARE, BC ==
[~2019-07-08] VITALS: Ht 157.5 cm; Wt 76.3 kg
[~2019-07-08 10:56] MED LIST changes: +ASPI-1265 PO; +CALC0.2536 PO; +FERR134T2 PO; -LACT1CAP65 PO; +LINA5TAB4 PO; +LOSA25TA96 PO; +POTA10TA10 PO
[2019-07-08 12:07] LABS: CLARITY,URINE CLEAR (Clear); COLOR,URINE STRAW (Yellow); GLUCOSE, URINE 100 mg/dl (Neg); KETONES,URINE NEGATIVE (Neg); LEUKOCYTE ESTERASE ,URINE NEGATIVE (Neg); NITRITES, URINE NEGATIVE (Neg); OCCULT BLOOD,URINE TRACE-INTACT (Neg); PROTEIN,URINE 100 mg/dl (Neg); UROBILINOGEN,URINE 0.2 E.U/dL (0.2-1.0)
[2019-07-08 12:10] LABS: UA COLLECTION TYPE CLN CATCH MIDSTREAM
[2019-07-08 12:16] LABS: BASOPHILS # (AUTO) 0.1 X10'3 (0-0.2); BASOPHILS % (AUTO) 0.7 % (0-1); EOSINOPHILS % (AUTO) 0.4 % (0-6); HEMATOCRIT 32.7 % (35.0-45.0); HEMOGLOBIN 10.4 g/dl (12.0-16.0); LYMPHOCYTES # (AUTO) 0.7 X10'3 (1.1-4.8); LYMPHOCYTES % (AUTO) 9.6 % (21-51); MEAN CORPUSCULAR HEMOGLOBIN 25.3 PG (27.0-31.0); MEAN CORPUSCULAR HGB CONC 31.6 g/dL (33.0-36.5); MEAN CORPUSCULAR VOLUME 79.9 FL (78-98); MONOCYTES # (AUTO) 0.8 X10'3 (0-0.9); MONOCYTES % (AUTO) 9.9 % (2-12); NEUTROPHILS # (AUTO) 6.1 X10'3 (1.8-7.7); NEUTROPHILS % (AUTO) 79.4 % (42-75); PLATELET COUNT 167 X10'3 (140-440); RED CELL DISTRIBUTION WIDTH 17.8 % (11.5-14.5); WHITE BLOOD COUNT 7.7 X10'3 (4.5-11.0)
[2019-07-08 12:22] LABS: PARTIAL THROMBOPLASTIN TIME 25 SECONDS (22-32)
[2019-07-08 12:23] LABS: ALANINE AMINOTRANSFERASE 41 U/L (12-78); ALBUMIN 3.6 G/DL (3.4-5.0); ALKALINE PHOSPHATASE 117 IU/L (46-116); ANION GAP 9 (8-16); ASPARTATE AMINO TRANSFERASE 32 U/L (10-37); BILIRUBIN,TOTAL 0.9 MG/DL (0.1-1.0); BLOOD UREA NITROGEN 61 MG/DL (7-18); BUN/CREATININE RATIO 25.6 (6.6-38.0); CALCIUM 9.9 MG/DL (8.5-10.1); CHLORIDE 100 MMOL/L (99-107); CREATININE 2.38 MG/DL (0.40-0.90); GLUCOSE 160 MG/DL (70-104); POTASSIUM 4.6 MMOL/L (3.5-5.1); SODIUM 137 MMOL/L (135-145); TOTAL CARBON DIOXIDE 28.3 MMOL/L (24-32); TOTAL PROTEIN 7.1 G/DL (6.4-8.2); eGFR 19 ML/MIN
[2019-07-08 12:46] LABS: SQUAMOUS EPITHELIAL CELL,UR FEW /LPF (FEW)
[2019-07-08 12:47] LABS: WBC,URINE 0-4 /HPF (0-4)
[2019-07-08 12:48] LABS: BACTERIA,URINE FEW /HPF (Neg); HYALINE CASTS 0-3 /LPF (NEGATIVE)
[2019-07-08 12:53] LABS: RBC,URINE 0-2 /HPF (0-2)
[2019-07-08] MEDS ORDERED: ipratropium/albuterol 3ml nebule NEB ONE (13:20)
[2019-07-08] MEDS ORDERED: ondansetron/PF 4mg/2ml inj IV ONE (13:20)
[2019-07-08] MEDS ORDERED: furosemide 10 MG/1 ML 10ml inj IV ONE (15:30)
[2019-07-08] MEDS ORDERED: normal saline 1000ml 1,000 ML IV SCH (15:59)
[2019-07-08] MEDS ORDERED: morphine 2 MG/ML inj. syringe IV PRN ×2 (16:00)
[2019-07-08] MEDS ORDERED: dextrose ORAL solution 15 GM/59 ML bottle PO PRN ×2 (16:00)
[2019-07-08] MEDS ORDERED: acetaminophen 325mg tablet PO PRN ×2 (16:00)
[2019-07-08] MEDS ORDERED: magnesium 4gm in 100ml NS 100 ML IV PRN (16:00)
[2019-07-08] MEDS ORDERED: acetaminophen 650mg rectal suppository RC PRN (16:00)
[2019-07-08] MEDS ORDERED: HYDROcodone/acetaminophen 10/325mg tab PO PRN (16:00)
[2019-07-08] MEDS ORDERED: magnesium hydroxide 30ml (MOM) UD suspension PO PRN (16:00)
[2019-07-08] MEDS ORDERED: bisacodyl 10mg suppository rectal RC PRN (16:00)
[2019-07-08] MEDS ORDERED: glucagon, human recombinant 1mg kit SUBCUT PRN (16:00)
[2019-07-08] MEDS ORDERED: dextrose 50%-water 50ml dispensing syringe IV PRN ×2 (16:00)
[2019-07-08] MEDS ORDERED: potassium Cl 20 mEq SR tablet PO PRN ×2 (16:00)
[2019-07-08] MEDS ORDERED: diphenhydrAMINE 50 mg/ml inj IV PRN (16:00)
[2019-07-08] MEDS ORDERED: diphenhydrAMINE 25mg capsule PO PRN (16:00)
[2019-07-08] MEDS ORDERED: magnesium 2GM in 50ml NS 50 ML IV PRN (16:00)
[2019-07-08] MEDS ORDERED: ipratropium/albuterol 3ml nebule NEB PRN (16:00)
[2019-07-08] MEDS ORDERED: mag hydrox/Alum hydrox/simeth 30ml oral suspension PO PRN (16:00)
[2019-07-08] MEDS ORDERED: potassium CL 10mEq/100ml bag 100 ML IV PRN ×2 (16:00)
[2019-07-08] MEDS ORDERED: HYDROcodone/acetaminophen 5mg/325mg tablet PO PRN (16:00)
[2019-07-08] MEDS ORDERED: ondansetron/PF 4mg/2ml inj IV PRN (16:00)
[2019-07-08] MEDS ORDERED: MESSAGE TO PHARMACY PO ONE (16:00)
[2019-07-08] MEDS: K and/or MAG REPLACEMENT MC SCH (16:37)
[2019-07-08] MEDS ORDERED: azithromycin/NS 500mg/250ml 250 ML IV ONE (17:05)
[2019-07-08] MEDS ORDERED: methylPREDNISolone sod succ 125mg/2ml vial IV ONE (17:05)
[2019-07-08 17:21] LABS: HEMOGLOBIN A1C 7.1 % (4.5-6.2)
[2019-07-08 17:26] LABS: MAGNESIUM 1.5 MG/DL (1.5-2.4)
[2019-07-08 17:30] VITALS: BP 190/69
[2019-07-08] MEDS ORDERED: ferrous sulfate 325mg tablet PO SCH (17:30)
--- NOTE | 2019-07-08 17:30 | NUR ---
Patient in room MED 313. I have received report from Altagracia and had the opportunity to ask questions and assume patient care.
--- NOTE | 2019-07-08 17:48 | NUR ---
Patient arrive to the ACCE unit via rney. Patient is alert and oriented x4. She is in a stable condition but she is SOB with exertion and at rest. Patient transferred from the gurney to the bed with little assistance and was repositioned to help with better breathing and the HOB at 45 degrees. Lung sounds are course throughout with expiratory wheezing. Assessment completed and assumed care of patient. Patient vitals are 98.2, HR 100, BP 187/65, resp 22, Sa02 on 2L 92%. Patient has medications overdue. Will administer and pass along in report.
[2019-07-08 18:00] VITALS: BP 187/65
[2019-07-08] MEDS: ferrous sulfate 325mg tablet PO SCH (18:05)
[2019-07-08] MEDS: CefTRIAXone/D5W-Rocephin 1gm 50 ML IV SCH (18:12)
--- NOTE | 2019-07-08 18:15 | NUR ---
Patient in room MED 313. I have received report from EDENILSON Parkinson and had the opportunity to ask questions and assume patient care.
--- NOTE | 2019-07-08 18:16 | NUR ---
Problems reprioritized. Patient report given, questions answered & plan of care reviewed with EDENILSON Wellington.
[2019-07-08 20:00] VITALS: BP_SYST 112; BP_SYST 115; BP_DIAS 50; BP_DIAS 60
[2019-07-08] MEDS: pantoprazole 40 MG vial IV SCH (20:00)
[2019-07-08] MEDS: ipratropium/albuterol 3ml nebule NEB SCH (20:27)
[2019-07-08] MEDS: furosemide 10 MG/1 ML 10ml inj IV SCH (20:37)
[2019-07-08] MEDS: heparin, porcine 5000 units/ml vial SQ SCH (20:38)
[2019-07-08] MEDS ORDERED: ALBU0.63 (20:38)
[2019-07-08] MEDS: atorvastatin 20mg tablet PO SCH (20:38)
[2019-07-08] MEDS: pantoprazole 40mg Tablet.DR PO SCH (20:38)
[2019-07-08] MEDS: insulin glargine (Lantus) pen - multi-dose SQ SCH (21:00)
[2019-07-08] MEDS ORDERED: temazepam 15mg capsule PO PRN (21:00)
[2019-07-08] MEDS ORDERED: non-formulary drug (Atorvastatin Calcium* (Lipitor*) 80 MG) PO SCH (21:00)
[2019-07-08 22:00] VITALS: BP 105/48
[2019-07-09] VITALS (7 sets, daily range): BP systolic 112–156; BP diastolic 48–66
[2019-07-09] MEDS: methylPREDNISolone sod succ 125mg/2ml vial IV SCH ×3 (00:33→16:40)
[2019-07-09 03:09] LABS: BASOPHILS % (AUTO) 0.4 % (0-1); EOSINOPHILS % (AUTO) 0 % (0-6); HEMATOCRIT 27.5 % (35.0-45.0); HEMOGLOBIN 8.5 g/dl (12.0-16.0); LYMPHOCYTES # (AUTO) 0.2 X10'3 (1.1-4.8); LYMPHOCYTES % (AUTO) 6.4 % (21-51); MEAN CORPUSCULAR HEMOGLOBIN 24.6 PG (27.0-31.0); MEAN CORPUSCULAR VOLUME 79.4 FL (78-98); MONOCYTES # (AUTO) 0.1 X10'3 (0-0.9); NEUTROPHILS # (AUTO) 2.9 X10'3 (1.8-7.7); NEUTROPHILS % (AUTO) 91.2 % (42-75); PLATELET COUNT 136 X10'3 (140-440); RED BLOOD COUNT 3.46 X10'6 (4.20-5.60); RED CELL DISTRIBUTION WIDTH 17.4 % (11.5-14.5); WHITE BLOOD COUNT 3.2 X10'3 (4.5-11.0)
[2019-07-09 03:19] LABS: ALANINE AMINOTRANSFERASE 27 U/L (12-78); ALBUMIN 2.7 G/DL (3.4-5.0); ALBUMIN/GLOBULIN RATIO 0.8 (1.1-1.5); ALKALINE PHOSPHATASE 82 IU/L (46-116); ANION GAP 13 (8-16); ASPARTATE AMINO TRANSFERASE 20 U/L (10-37); BLOOD UREA NITROGEN 60 MG/DL (7-18); BUN/CREATININE RATIO 24.8 (6.6-38.0); CALCIUM 9.2 MG/DL (8.5-10.1); CHLORIDE 102 MMOL/L (99-107); CHOL/HDL RATIO 2.3 (0.00-4.99); CHOLESTEROL 128 MG/DL (0-200); CREATININE 2.42 MG/DL (0.40-0.90); GLUCOSE 232 MG/DL (70-104); HDL CHOLESTEROL 55 MG/DL (35-60); LDL CHOLESTEROL 67 MG/DL (50-100); MAGNESIUM 1.4 MG/DL (1.5-2.4); PHOSPHORUS 4.9 MG/DL (2.3-4.5); POTASSIUM 4.2 MMOL/L (3.5-5.1); SODIUM 140 MMOL/L (135-145); TOTAL CARBON DIOXIDE 25.4 MMOL/L (24-32); TOTAL PROTEIN 5.9 G/DL (6.4-8.2); TRIGLYCERIDES 44 MG/DL (20-135); eGFR 19 ML/MIN
[2019-07-09] MEDS: ipratropium/albuterol 3ml nebule NEB SCH ×4 (03:29→19:48)
--- NOTE | 2019-07-09 06:00 | NUR ---
Patient in room MED 313. I have received report from EDENILSON Wellington and had the opportunity to ask questions and assume patient care.
--- NOTE | 2019-07-09 06:25 | NUR ---
Problems reprioritized. Patient report given, questions answered & plan of care reviewed with EDENILSON Linton and EDENILSON Potter.
[2019-07-09 07:01] LABS: BASOPHILS % (AUTO) 0.2 % (0-1); EOSINOPHILS % (AUTO) 0 % (0-6); HEMATOCRIT 28.3 % (35.0-45.0); LYMPHOCYTES # (AUTO) 0.2 X10'3 (1.1-4.8); LYMPHOCYTES % (AUTO) 8.2 % (21-51); MEAN CORPUSCULAR HEMOGLOBIN 25.2 PG (27.0-31.0); MEAN CORPUSCULAR HGB CONC 31.6 g/dL (33.0-36.5); MEAN CORPUSCULAR VOLUME 79.6 FL (78-98); MEAN PLATELET VOLUME 9.9 FL (7.4-10.4); MONOCYTES # (AUTO) 0.1 X10'3 (0-0.9); MONOCYTES % (AUTO) 3.2 % (2-12); NEUTROPHILS % (AUTO) 88.4 % (42-75); PLATELET COUNT 146 X10'3 (140-440); RED BLOOD COUNT 3.56 X10'6 (4.20-5.60); RED CELL DISTRIBUTION WIDTH 17.6 % (11.5-14.5); WHITE BLOOD COUNT 2.3 X10'3 (4.5-11.0)
[2019-07-09] MEDS: levoTHYROXINE 88mcg tablet PO SCH (07:24)
[2019-07-09] MEDS ORDERED: non-formulary drug (Metoprolol Succinate* (Toprol Xl*) 1 TAB) PO SCH (08:00)
[2019-07-09] MEDS: pantoprazole 40 MG vial IV SCH (08:00)
[2019-07-09] MEDS ORDERED: levoTHYROXINE 75mcg tablet PO SCH (08:00)
[2019-07-09] MEDS: K and/or MAG REPLACEMENT MC SCH (08:00)
[2019-07-09] MEDS: insulin Lispro (HumaLOG) vial - multi-dose SQ SCH ×3 (08:36→18:16)
[2019-07-09 09:04] LABS: TOTAL CELLS COUNTED 100
[2019-07-09 09:05] LABS: ANISOCYTOSIS 1+; LARGE PLATELETS FEW; MICROCYTOSIS 1+; PLATELET ESTIMATE NORMAL
[2019-07-09 09:06] LABS: HYPOCHROMASIA 1+
[2019-07-09] MEDS: furosemide 10 MG/1 ML 10ml inj IV SCH ×2 (09:12→21:13)
[2019-07-09] MEDS: CefTRIAXone/D5W-Rocephin 1gm 50 ML IV SCH (09:14)
[2019-07-09] MEDS: ferrous sulfate 325mg tablet PO SCH ×2 (09:15→16:40)
[2019-07-09] MEDS: azithromycin 250mg tablet PO SCH (09:15)
[2019-07-09] MEDS: aspirin 81mg tab.chew PO SCH ×2 (09:16→09:44)
[2019-07-09] MEDS: heparin, porcine 5000 units/ml vial SQ SCH ×2 (09:16→21:14)
[2019-07-09] MEDS: calcitriol 0.25mcg capsule PO SCH (09:38)
[2019-07-09] MEDS: losartan 25mg tablet PO SCH (09:42)
[2019-07-09] MEDS: metoprolol succinate 25mg (24-HOUR) SR. Tablet PO SCH (09:44)
[2019-07-09] MEDS: pantoprazole 40mg Tablet.DR PO SCH ×2 (09:45→21:13)
[2019-07-09] MEDS: sertraline 50mg tablet PO SCH (09:46)
[2019-07-09] MEDS: magnesium Cl slow-release 64mg tablet PO PRN ×2 (10:40→21:13)
--- NOTE | 2019-07-09 12:22 | NUR ---
DM/Malnutrition consults: Pt hx T2DM A1C 7.1. Pt seen by RD for written DM ed w/ RD contact information provided; pt declined verbal ed. Pt reports 130# wt loss intentional over long-term and endorses good appetite w/ PO 75% avg first meal this admit. BMI 31. Pt has no visible signs of muscle/fat wasting and at this time does not meet malnutrition criteria. Pt is agreeable to side anderson MCCURDY; dietary notified. Addendum: 07/09/19 at [address] Amended: Links added.
--- NOTE | 2019-07-09 18:00 | NUR ---
Problems reprioritized. Patient report given, questions answered & plan of care reviewed with EDENILSON Orozco.
--- NOTE | 2019-07-09 18:15 | NUR ---
Patient in room MED 313. I have received report from Shaila PYLE and had the opportunity to ask questions and assume patient care. Bedside report completed, fall precaution implemented, no distress noted.
--- NOTE | 2019-07-09 19:44 | NUR ---
Dr. Telles, notified for clarification of magnesium protocol. patient morning magnesium level 1.4, protocol stated give 128 gm slow mag BID or 6 grams of IV magnesium. Concern was dose is significantly different for the same lab level. clarification given, MD parnell to slow mag- give, not IV magnesium.
[2019-07-09] MEDS: atorvastatin 20mg tablet PO SCH ×2 (21:13→22:28)
[2019-07-09] MEDS: insulin glargine (Lantus) pen - multi-dose SQ SCH (22:32)
[2019-07-10] MEDS: methylPREDNISolone sod succ 125mg/2ml vial IV SCH ×2 (00:51→07:43)
[2019-07-10 02:30] VITALS: BP 118/44
[2019-07-10] MEDS: ipratropium/albuterol 3ml nebule NEB SCH ×2 (02:37→09:17)
[2019-07-10 03:25] LABS: BASOPHILS % (AUTO) 0.1 % (0-1); EOSINOPHILS % (AUTO) 0 % (0-6); HEMATOCRIT 26.7 % (35.0-45.0); HEMOGLOBIN 8.6 g/dl (12.0-16.0); LYMPHOCYTES # (AUTO) 0.4 X10'3 (1.1-4.8); LYMPHOCYTES % (AUTO) 4.2 % (21-51); MEAN CORPUSCULAR HEMOGLOBIN 25.1 PG (27.0-31.0); MEAN CORPUSCULAR HGB CONC 32.3 g/dL (33.0-36.5); MEAN CORPUSCULAR VOLUME 77.8 FL (78-98); MEAN PLATELET VOLUME 9.8 FL (7.4-10.4); MONOCYTES # (AUTO) 0.2 X10'3 (0-0.9); NEUTROPHILS # (AUTO) 8.3 X10'3 (1.8-7.7); NEUTROPHILS % (AUTO) 93.7 % (42-75); PLATELET COUNT 152 X10'3 (140-440); RED BLOOD COUNT 3.44 X10'6 (4.20-5.60); RED CELL DISTRIBUTION WIDTH 17.2 % (11.5-14.5); WHITE BLOOD COUNT 8.8 X10'3 (4.5-11.0)
[2019-07-10 03:35] LABS: ANION GAP 10 (8-16); BLOOD UREA NITROGEN 67 MG/DL (7-18); BUN/CREATININE RATIO 22.7 (6.6-38.0); CHLORIDE 100 MMOL/L (99-107); CREATININE 2.95 MG/DL (0.40-0.90); GLUCOSE 204 MG/DL (70-104); POTASSIUM 3.9 MMOL/L (3.5-5.1); SODIUM 137 MMOL/L (135-145); TOTAL CARBON DIOXIDE 27.4 MMOL/L (24-32)
[2019-07-10 03:36] LABS: ALANINE AMINOTRANSFERASE 20 U/L (12-78); ALBUMIN 2.8 G/DL (3.4-5.0); ALBUMIN/GLOBULIN RATIO 0.9 (1.1-1.5); ALKALINE PHOSPHATASE 67 IU/L (46-116); ASPARTATE AMINO TRANSFERASE 14 U/L (10-37); BILIRUBIN,TOTAL 0.7 MG/DL (0.1-1.0); CALCIUM 8.8 MG/DL (8.5-10.1); MAGNESIUM 1.6 MG/DL (1.5-2.4); TOTAL PROTEIN 5.8 G/DL (6.4-8.2); eGFR 15 ML/MIN
[2019-07-10 06:00] VITALS: BP 108/51
--- NOTE | 2019-07-10 06:05 | NUR ---
Patient in room MED 313. I have received report from EDENILSON Orozco and had the opportunity to ask questions and assume patient care.
--- NOTE | 2019-07-10 06:38 | NUR ---
Problems reprioritized. Patient report given, questions answered & plan of care reviewed with Shaila PYLE.
[2019-07-10] MEDS: furosemide 10 MG/1 ML 10ml inj IV SCH (07:42)
[2019-07-10] MEDS: levoTHYROXINE 88mcg tablet PO SCH (07:43)
[2019-07-10] MEDS: CefTRIAXone/D5W-Rocephin 1gm 50 ML IV SCH (07:43)
[2019-07-10] MEDS: sertraline 50mg tablet PO SCH (07:44)
[2019-07-10] MEDS: losartan 25mg tablet PO SCH (07:44)
[2019-07-10] MEDS: aspirin 81mg tab.chew PO SCH (07:45)
[2019-07-10] MEDS: ferrous sulfate 325mg tablet PO SCH (07:45)
[2019-07-10] MEDS: calcitriol 0.25mcg capsule PO SCH (07:45)
[2019-07-10] MEDS: metoprolol succinate 25mg (24-HOUR) SR. Tablet PO SCH (07:45)
[2019-07-10] MEDS: azithromycin 250mg tablet PO SCH (07:46)
[2019-07-10] MEDS: pantoprazole 40mg Tablet.DR PO SCH (07:46)
[2019-07-10] MEDS: heparin, porcine 5000 units/ml vial SQ SCH (07:48)
[2019-07-10] MEDS: K and/or MAG REPLACEMENT MC SCH (07:52)
[2019-07-10] MEDS: insulin Lispro (HumaLOG) vial - multi-dose SQ SCH (08:40)
[2019-07-10] MEDS ORDERED: PANT40TA4 PO (09:38)
[2019-07-10] MEDS ORDERED: PRED10TA23 PO (09:38)
[2019-07-10] MEDS ORDERED: BUDE10.22 INH (09:38)
[2019-07-10] MEDS ORDERED: ALBU8.5H8 INH (09:38)
[2019-07-10] MEDS ORDERED: AZI25OT PO (09:38)
[2019-07-10] MEDS ORDERED: SYN0.088T PO (09:38)
--- NOTE | 2019-07-10 10:30 | NUR ---
Orienteer documentation: I have reviewed and agree with interventions, assessments performed and documented by Mery Linton RN. Orienteer Medication Administration: For this medication-pass time frame, medication were reviewed, dispensed, administered and documented per hospital policy by EDENILSON Linton.
--- NOTE | 2019-07-10 11:28 | NUR ---
Per MD, patient stable for discharge. Prescriptions called into [facility]; Pharmacist I spoke with, Mary. ALL belongings gathered and sent with patient and grandson. PIV removed, TIP intact, pt tolerated well. All questions and concerns addressed. Discharge paperwork reviewed and signed by patient. Transported via by nursing staff to personal vehicle.
== END 2019-07-10 11:26 | disposition home health service (06) | DRG 189 ==
LOC: ER 10:56 → ED HOLD 15:59 → MED 3N 18:01
PROVIDERS: ADMIT Family Medicine; ATTEND Family Medicine
DX: J96.90 Respiratory failure, unspecified, unspecified whether with hypoxia or hypercapnia (principal); I50.43 Acute on chronic combined systolic (congestive) and diastolic (congestive) heart failure; I13.0 Hypertensive heart and chronic kidney disease with heart failure and stage 1 through stage 4 chronic kidney disease, or unspecified chronic kidney disease; J44.1 Chronic obstructive pulmonary disease with (acute) exacerbation; N18.4 Chronic kidney disease, stage 4 (severe); E03.9 Hypothyroidism, unspecified; E11.22 Type 2 diabetes mellitus with diabetic chronic kidney disease; E11.51 Type 2 diabetes mellitus with diabetic peripheral angiopathy without gangrene; E78.5 Hyperlipidemia, unspecified; F41.9 Anxiety disorder, unspecified; G89.29 Other chronic pain; F32.9 Major depressive disorder, single episode, unspecified; I25.10 Atherosclerotic heart disease of native coronary artery without angina pectoris; R19.7 Diarrhea, unspecified; K21.9 Gastro-esophageal reflux disease without esophagitis; Z66 Do not resuscitate; Z79.4 Long term (current) use of insulin; Z79.890 Hormone replacement therapy; I25.2 Old myocardial infarction; Z82.3 Family history of stroke; Z85.038 Personal history of other malignant neoplasm of large intestine; Z87.891 Personal history of nicotine dependence; Z95.1 Presence of aortocoronary bypass graft; Z99.81 Dependence on supplemental oxygen; Z90.49 Acquired absence of other specified parts of digestive tract
CPT/HCPCS: 36415; 71045; 80053; 80061; 81001; 82948; 83036; 83735; 83880; 84100; 84443; 84484; 85025; 85610; 85730; 87081; 92508; 92616; 93005; 94640; 94760; 96374; 96375; 97116; 97161; 97530; 99285; G0378; J0456; J0696; J1644; J1815; J1940; J2405; J2930; J7030

== ENCOUNTER 2019-07-25 15:09 | Emergency (ER) | payer MEDICARE, BC ==
[~2019-07-25] VITALS: Ht 154.9 cm; Wt 76.0 kg
[~2019-07-25 15:09] MED LIST changes: +ALBU0.63; +ALBU8.5H8 INH; +AZI25OT PO; +BUDE10.22 INH; -LEVO75TA7 PO; +PRED10TA23 PO; +SYN0.088T PO
[2019-07-25] MEDS ORDERED: furosemide 10 MG/1 ML 10ml inj IV ONE (16:15)
[2019-07-25 16:43] LABS: BASOPHILS % (AUTO) 0.6 % (0-1); EOSINOPHILS # (AUTO) 0.1 X10'3 (0-0.9); EOSINOPHILS % (AUTO) 1.4 % (0-6); HEMATOCRIT 27.1 % (35.0-45.0); HEMOGLOBIN 8.6 g/dl (12.0-16.0); LYMPHOCYTES # (AUTO) 0.6 X10'3 (1.1-4.8); MEAN CORPUSCULAR HEMOGLOBIN 25.4 PG (27.0-31.0); MEAN CORPUSCULAR HGB CONC 31.7 g/dL (33.0-36.5); MEAN CORPUSCULAR VOLUME 80.3 FL (78-98); MEAN PLATELET VOLUME 9.5 FL (7.4-10.4); MONOCYTES # (AUTO) 0.5 X10'3 (0-0.9); MONOCYTES % (AUTO) 8.3 % (2-12); NEUTROPHILS % (AUTO) 79.7 % (42-75); PLATELET COUNT 121 X10'3 (140-440); RED BLOOD COUNT 3.37 X10'6 (4.20-5.60); RED CELL DISTRIBUTION WIDTH 19.4 % (11.5-14.5); WHITE BLOOD COUNT 6.3 X10'3 (4.5-11.0)
[2019-07-25 16:55] LABS: PARTIAL THROMBOPLASTIN TIME 26 SECONDS (22-32)
[2019-07-25 16:58] LABS: ALANINE AMINOTRANSFERASE 39 U/L (12-78); ALKALINE PHOSPHATASE 100 IU/L (46-116); ANION GAP 7 (8-16); ASPARTATE AMINO TRANSFERASE 29 U/L (10-37); BILIRUBIN,TOTAL 0.6 MG/DL (0.1-1.0); BLOOD UREA NITROGEN 58 MG/DL (7-18); CALCIUM 9.5 MG/DL (8.5-10.1); CHLORIDE 107 MMOL/L (99-107); CREATININE 2.15 MG/DL (0.40-0.90); GLUCOSE 170 MG/DL (70-104); POTASSIUM 4.8 MMOL/L (3.5-5.1); SODIUM 142 MMOL/L (135-145); TOTAL CARBON DIOXIDE 27.6 MMOL/L (24-32); eGFR 22 ML/MIN
[2019-07-25 17:06] LABS: PLATELET ESTIMATE DECREASED
[2019-07-25 17:07] LABS: ACANTHOCYTES 1+; ANISOCYTOSIS 2+; ELLIPTOCYTES 1+; HYPOCHROMASIA 1+; POLYCHROMASIA 1+; TEAR DROP CELLS 1+
[2019-07-25 18:33] VITALS: BP 116/48
== END 2019-07-25 18:35 | disposition home or self-care (01) ==
LOC: ER 15:09
DX: I11.0 Hypertensive heart disease with heart failure (principal); I50.9 Heart failure, unspecified; I25.10 Atherosclerotic heart disease of native coronary artery without angina pectoris; J44.9 Chronic obstructive pulmonary disease, unspecified; E11.9 Type 2 diabetes mellitus without complications; Z86.2 Personal history of diseases of the blood and blood-forming organs and certain disorders involving the immune mechanism; Z85.038 Personal history of other malignant neoplasm of large intestine; Z98.61 Coronary angioplasty status; Z90.49 Acquired absence of other specified parts of digestive tract; Z98.890 Other specified postprocedural states; Z95.1 Presence of aortocoronary bypass graft; Z95.0 Presence of cardiac pacemaker; Z79.82 Long term (current) use of aspirin; Z79.899 Other long term (current) drug therapy
CPT/HCPCS: 36415; 71045; 80053; 83605; 83880; 84145; 84484; 85025; 85610; 85730; 93005; 93970; 96374; 99284; J1940